=== PATIENT | female | born 1940 | race Caucasian/White ===

== ENCOUNTER → 2017-08-20 10:31 | Outpatient (CLI) | payer MEDICARE, OTHER, SELFPAY ==
[2017-08-22 22:15] LABS: Albumin 3.8 g/dL (3.8-4.8); Alpha 1 Globulin 0.3 g/dL (0.2-0.3); Alpha 2 Globulin 0.9 g/dL (0.5-0.9); Beta 1 Globulin 0.5 g/dL (0.4-0.6); Gamma Globulin 0.8 g/dL (0.8-1.7); Protein, Total 6.6 g/dL (6.1-8.1)
[2017-08-23 15:28] LABS: Albumin 100 %; Protein/ Creatinine Ratio 234 mg/g creat (21-161); Total Urine Protein 4 mg/dL (5-24)
== END ==
PROVIDERS: Family Provider Physician Assistant; PCP Physician Assistant; Visit Provider Orthopaedic Surgery
DX: M89.8X5 Other specified disorders of bone, thigh (principal)
CPT/HCPCS: 36415; 84155; 84156; 84165; 84166

== ENCOUNTER 2017-10-23 11:37 | Emergency (ER) | payer MEDICARE, OTHER, SELFPAY ==
[2017-10-23 11:40] VITALS: BP 158/73; PULSE 79; RESP 18; TEMP 36.6; O2SAT 99; BMI 37.8
--- NOTE | 2017-10-23 12:34 | ED_ITS ---
HPI - Eye Problem <Kathryn Schulz, BEAN PICKER MACHINE OPERATOR-BC - Last Filed: 10/23/17 14:17> General Chief complaint: Eye Problems Stated complaint: bleeding from left eye this morning Time Seen by Provider: 10/23/17 12:04 Source: patient Mode of arrival: ambulatory Limitations: no limitations History of Present Illness HPI Narrative: Patient was in shower this morning and noticed blood from her left eye. She states she is no longer bleeding from her left eye. She states that her eye all of a sudden felt wet, but she was in the shower. She denies any fevers, nausea, vomiting, diarrhea, headache at this time. She does complain of some postnasal drip. She denies sinus pressure sinus headaches. She was started on a drop for dry eyes last week, but she is not sure the name. She used it last night at 10:00 p.m. She saw her eye doctor last week for blurry vision. She states that the blurry vision is not worsened or changed. She denies changes in her vision, double vision, halos around lights. No foreign body sensation. Related Data Home Medications Medication Instructions Recorded Confirmed aspirin 81 mg PO QPM #0 09/10/10 10/23/17 Probiotic 1 cap PO QDAY #0 11/24/12 10/23/17 [CPAP] 1 ea MISCELLANEOUS HS #0 06/25/16 10/23/17 coenzyme Q10 [Co Q-10] 200 mg PO BID #0 06/25/16 10/23/17 Glucose: Test Strips 1 str MISCELLANEOUS PRN 10/23/17 10/23/17 atorvastatin [Lipitor] 20 mg PO BEDTIME 10/23/17 10/23/17 ibuprofen 800 mg PO TID PRN 10/23/17 10/23/17 metformin 1,000 mg PO QPM 10/23/17 10/23/17 metformin [Glucophage] 500 mg PO QAM 10/23/17 10/23/17 metronidazole [Metrogel] 1 applic TOPICAL DIRECTED 10/23/17 10/23/17 scopolamine base 1 patch TRANSDERMAL Q72H PRN 10/23/17 10/23/17 Previous Rx's Medication Instructions Recorded allopurinol 100 mg PO QDAY #90 tab 12/11/16 levothyroxine [Synthroid] 125 mcg PO QDAY #90 tab 06/25/17 telmisartan 40 mg PO QDAY #90 tab 06/25/17 chlorthalidone 25 mg tablet 25 mg PO QDAY #90 tab 08/20/17 Allergies Allergy/AdvReac Type Severity Reaction Status Date / Time Penicillins [PENICILLINS] Allergy Severe HIVES Unverified 07/02/17 12:08 cephradine [CEPHRADINE] AdvReac Severe RASH Verified 10/23/17 11:43 codeine [CODEINE] AdvReac Severe HIVES Verified 10/23/17 11:43 Pertussis Vaccines AdvReac Severe IT GAVE Verified 10/23/17 11:43 [PERTUSSIS VACCINES] ME THE WHOOPING COUGH WHEN I WAS AN INFANT. lisinopril [LISINOPRIL] AdvReac Mild COUGH Verified 10/23/17 11:43 Review of Systems <BRI Burnett- - Last Filed: 10/23/17 14:17> Review of Systems GENERAL: Denies chills, fatigue, malaise, fever, sweats. HEENT: See HPI RESPIRATORY: Denies dyspnea, cough, wheezing, hemoptysis, sputum. CARDIOVASCULAR: Denies chest pain, palpitations, orthopnea, edema, GASTROINTESTINAL: Denies nausea, vomiting, abdominal pain, diarrhea, constipation, melena. : Denies dysuria, frequency, incontinence, hematuria, urinary retention. MUSCULOSKELETAL: denies weakness, joint pain, or bony pain SKIN: Denies rash, skin lesions, or other NEUROLOGIC: Denies weakness, headache, numbness, change in speech, confusion, seizures, incoordination. PSYCHIATRIC: No concerning psychosocial issues. 12 point review of systems is negative except for those stated above Exam <BRI Burnett- - Last Filed: 10/23/17 14:17> Narrative Exam Narrative: GENERAL: Obese elderly female lying on stretcher. HEAD: Atraumatic. Normocephalic. No temporal or scalp tenderness. No pain to sinus palpation. EYES: Pupils equal round and reactive. Extraocular motions intact. No scleral icterus. No injection or drainage. No pain on EOMs. No noted bleeding bilateral eyes. ENT: Nose without bleeding, purulent drainage or septal hematoma. Throat without erythema, tonsillar hypertrophy or exudate. Uvula midline. Airway patent. NECK: Trachea midline. No JVD or lymphadenopathy. Supple, nontender, no meningeal signs. CARDIOVASCULAR: Regular rate and rhythm without murmurs, gallops, or rubs. RESPIRATORY: Clear to auscultation. Breath sounds equal bilaterally. No wheezes , rales, or rhonchi. GASTROINTESTINAL: Abdomen soft, non-tender, nondistended. No hepato-splenomegaly , or palpable masses. No guarding. EXTREMITIES: No clubbing, cyanosis, or edema. No joint tenderness, effusion, or edema noted. BACK: Nontender without deformity or crepitance. No flank tenderness. NEURO: AOx3. SKIN: No rash or erythema. No ecchymosis, laceration or abrasion noted around left eye or right eye. Initial Vital Signs Initial Vital Signs: Vital Signs Temperature 97.9 F 10/23/17 11:40 Pulse Rate 79 10/23/17 11:40 Respiratory Rate 18 10/23/17 11:40 Blood Pressure 158/73 H 10/23/17 11:40 Pulse Oximetry 99 10/23/17 11:40 <Alejandro Gold MD - Last Filed: 10/27/17 08:16> Initial Vital Signs Initial Vital Signs: Vital Signs Temperature 97.9 F 10/23/17 11:40 Pulse Rate 79 10/23/17 11:40 Respiratory Rate 18 10/23/17 11:40 Blood Pressure 158/73 H 10/23/17 11:40 Pulse Oximetry 99 10/23/17 11:40 Course <BRI Burnett-BC - Last Filed: 10/23/17 14:17> Orders Ordered: ED Orders 10/23/17 13:25 Complete Blood Count AUTO DIFF Stat Comprehensive Metabolic Panel Stat Prothrombin Time INR Stat Reevaluation(s) Reevaluation #1: Discussed getting labs, possibility of nasal lacrimal duct dryness from CPAP. Patient has no questions or concerns at this time. No blood from left eye. Time: 12:55 Reevaluation #2: Discussed waiting for lab results. No bleeding from left I observed. Patient was given ice water myself. Time: 13:20 Reevaluation #3: Discussed normal lab results. Patient still has no blood from left eye. Patient has no questions or concerns and states she is ready to be discharged. Discussed at length return precautions for eye pain, visual difficulty or any acute changes. Discussed being re-evaluated for a lobes around lights, eye pain or any visual difficulties. Time: 14:00 Vital Signs - 8 hr 10/23/17 11:40 10/23/17 13:29 Temperature 97.9 F Pulse Rate 79 67 Respiratory Rate 18 14 Blood Pressure 158/73 H Blood Pressure [Left Arm] 137/67 H Pulse Oximetry 99 100 <Alejandro Gold MD - Last Filed: 10/27/17 08:16> Orders Ordered: ED Orders 10/23/17 13:25 Complete Blood Count AUTO DIFF Stat Comprehensive Metabolic Panel Stat Prothrombin Time INR Stat Vital Signs - 8 hr 10/23/17 11:40 10/23/17 13:29 Temperature 97.9 F Pulse Rate 79 67 Respiratory Rate 18 14 Blood Pressure 158/73 H Blood Pressure [Left Arm] 137/67 H Pulse Oximetry 99 100 MDM - Eye Problem <LITO Burnett - Last Filed: 10/23/17 14:17> Lab Data Result diagrams: 10/23/17 13:25 10/23/17 13:25 Lab Results 10/23/17 10/23/17 10/23/17 Range/Units 13:25 13:25 13:25 WBC 8.0 (4.5-11.0) X10^3/uL RBC 4.61 (4.0-5.2) X10^6/uL Hgb 14.2 (12.0-16.0) g/dL Hct 41.6 (36-46) % MCV 90.2 (80-100) fL MCH 30.9 (26-34) PG MCHC 34.2 (30-36) % RDW 13.1 (11.6-14.8) % Plt Count 228 (150-400) X10^3/uL Neut % (Auto) 60.6 (50-75) % Lymph % (Auto) 27.0 (25-40) % [place] % (Auto) 8.2 (3-14) % Eos % (Auto) 3.4 (2-4) % Baso % (Auto) 0.8 (0-2) % Neut # (Auto) 4900 (5436-1296) /uL PT 11.2 (10.1-12.7) SECONDS INR 1.0 (0.9-1.3) Sodium 139 (137-145) mmol/L Potassium 3.5 (3.4-5.1) mmol/L Chloride 102 (98-107) mmol/L Carbon Dioxide 31 (22-32) mmol/L BUN 12 (7-17) mg/dL Creatinine 0.60 (0.52-1.04) mg/dL Estimated GFR > 60.0 (>60) mL/min BUN/Creatinine Ratio 20.0 (6-22) Glucose 98 (80-110) mg/dL Calcium 9.9 (8.4-10.2) mg/dL Total Bilirubin 0.5 (0.2-1.3) mg/dL AST 23 (14-36) IU/L ALT 32 (9-52) IU/L Alkaline Phosphatase 66 (38-126) U/L Total Protein 6.4 (6.3-8.2) g/dL Albumin 4.0 (3.5-5.0) g/dL Globulin 2.4 (1.7-4.1) g/dL Albumin/Globulin Ratio 1.7 (1.0-2.8) MDM Narrative Medical decision making narrative: Patient presented with chief complaint of blood coming from left eye this morning at approximately 9:30 a.m.. She did not have any blood observed from her left eye throughout her emergency department stay. I did basic lab work in order to rule out underlying etiology. She does not have any complaints that would indicate sinus infection and she has stable vital signs. She had a normal eye exam and did not complain of visual deficit. Discussed at length with patient return precautions and I pain, reoccurrence, or sudden visual deficit. She is seeing an eye doctor for blurry vision and dry eyes, but does not state any changes with those complaints. Patient has now questions or concerns upon discharge appears grateful for her visit today. <Alejandro Gold MD - Last Filed: 10/27/17 08:16> Lab Data Lab Results 10/23/17 10/23/17 10/23/17 Range/Units 13:25 13:25 13:25 WBC 8.0 (4.5-11.0) X10^3/uL RBC 4.61 (4.0-5.2) X10^6/uL Hgb 14.2 (12.0-16.0) g/dL Hct 41.6 (36-46) % MCV 90.2 (80-100) fL MCH 30.9 (26-34) PG MCHC 34.2 (30-36) % RDW 13.1 (11.6-14.8) % Plt Count 228 (150-400) X10^3/uL Neut % (Auto) 60.6 (50-75) % Lymph % (Auto) 27.0 (25-40) % [place] % (Auto) 8.2 (3-14) % Eos % (Auto) 3.4 (2-4) % Baso % (Auto) 0.8 (0-2) % Neut # (Auto) 4900 (5982-8936) /uL PT 11.2 (10.1-12.7) SECONDS INR 1.0 (0.9-1.3) Sodium 139 (137-145) mmol/L Potassium 3.5 (3.4-5.1) mmol/L Chloride 102 (98-107) mmol/L Carbon Dioxide 31 (22-32) mmol/L BUN 12 (7-17) mg/dL Creatinine 0.60 (0.52-1.04) mg/dL Estimated GFR > 60.0 (>60) mL/min BUN/Creatinine Ratio 20.0 (6-22) Glucose 98 (80-110) mg/dL Calcium 9.9 (8.4-10.2) mg/dL Total Bilirubin 0.5 (0.2-1.3) mg/dL AST 23 (14-36) IU/L ALT 32 (9-52) IU/L Alkaline Phosphatase 66 (38-126) U/L Total Protein 6.4 (6.3-8.2) g/dL Albumin 4.0 (3.5-5.0) g/dL Globulin 2.4 (1.7-4.1) g/dL Albumin/Globulin Ratio 1.7 (1.0-2.8) Discharge Plan Departure Patient Disposition: Home, Self-Care Clinical Impression: Left eye complaint Discharge Date/Time: 10/23/17 14:25 Interventions: ED Discharge Assessment Last Done: 10/23/17 14:24 Activity Restrictions/Additional Instructions: You presented today for chief complaint of bleeding from your left eye. This bleeding was not observed in the emergency department. Your lab work came back normal. Your exam does not show any abnormality. I would like you to use lubricating nasal spray as needed, especially since you uses CPAP at night. I would like you to follow up with your eye doctor since you do not like using the lubricating drops he gave you. You can try using a non additive lubricating drops [id number]. Please come back to the emergency department if you notice any sudden visual deficit, eye pain, or any other acute concerns. Prescriptions: No Action aspirin 81 mg Tablet,Delayed Release (Dr/Ec) 81 mg PO QPM Qty: 0 RF: 0 Probiotic 1 cap PO QDAY Qty: 0 RF: 0 coenzyme Q10 [Co Q-10] 200 mg Capsule 200 mg PO BID Qty: 0 RF: 0 [CPAP] 1 ea miscellaneous HS Qty: 0 RF: 0 allopurinol 100 MG tablet 100 mg PO QDAY Qty: 90 RF: 3 telmisartan 40 MG tablet 40 mg PO QDAY Qty: 90 RF: 3 levothyroxine [Synthroid] 125 MCG tablet 125 mcg PO QDAY Qty: 90 RF: 4 chlorthalidone 25 mg tablet 25 mg PO QDAY Qty: 90 RF: 3 metronidazole [Metrogel] 1 % gel 1 applic Topical DIRECTED RF: 0 Glucose: Test Strips 1 str miscellaneous PRN RF: 0 metformin 500 mg tablet 1,000 mg PO QPM RF: 0 scopolamine base 1 mg over 3 days Patch 3 Day 1 patch TRANSDERMAL Q72H PRN (Reason: Dizziness) RF: 0 metformin [Glucophage] 500 MG tablet 500 mg PO QAM RF: 0 atorvastatin [Lipitor] 20 MG tablet 20 mg PO BEDTIME RF: 0 ibuprofen 800 MG tablet 800 mg PO TID PRN (Reason: knee pain) RF: 0 Referrals: Natalie Marquis PA-C [Primary Care Provider] - <Alejandro Gold MD - Last Filed: 10/27/17 08:16> Sign Out Provider Sign Out Attestation: The PA/IP TECHNOLOGY TRANSACTIONS ATTORNEY functioned independently for the care of this pt, I was available, but not asked to participate in care. I am unable to determine appropriateness of management without personally examining the pt.
--- NOTE | 2017-10-23 13:27 | PC.NURSE ---
PT had sudden blood from left eye. Blurry vision pre dates this and has been under care of eye doctor.
[2017-10-23 13:29] VITALS: BP 137/67; PULSE 67; RESP 14; O2SAT 100
[2017-10-23 13:32] LABS: Add Manual Diff / Slide Review NO; Basophils Percent Auto 0.8 % (0-2); Eosinophils Percent Auto 3.4 % (2-4); Hematocrit 41.6 % (36-46); Hemoglobin 14.2 g/dL (12.0-16.0); Mean Corpuscular HGB Conc 34.2 % (30-36); Mean Corpuscular Hemoglobin 30.9 PG (26-34); Mean Corpuscular Volume 90.2 fL (80-100); Monocytes Percent Auto 8.2 % (3-14); Neutrophils Absolute Auto 4900 /uL (3000-5900); Neutrophils Percent Auto 60.6 % (50-75); Platelet Count 228 X10^3/uL (150-400); Red Blood Cell Count 4.61 X10^6/uL (4.0-5.2); Red Cell Distribution Width 13.1 % (11.6-14.8)
[2017-10-23 13:43] LABS: Prothrombin Time 11.2 SECONDS (10.1-12.7)
[2017-10-23 13:48] LABS: Alanine Aminotransferase 32 IU/L (9-52); Albumin Globulin Ratio 1.7 (1.0-2.8); Alkaline Phosphatase 66 U/L (38-126); Aspartate Aminotransferase 23 IU/L (14-36); Bilirubin Total 0.5 mg/dL (0.2-1.3); Blood Urea Nitrogen 12 mg/dL (7-17); Calcium 9.9 mg/dL (8.4-10.2); Carbon Dioxide 31 mmol/L (22-32); Chloride 102 mmol/L (98-107); Estimated Glomerular Filt Rate > 60.0 mL/min (>60); Globulin 2.4 g/dL (1.7-4.1); Glucose 98 mg/dL (80-110); HEMOLYSIS < 15 (0-50); Potassium 3.5 mmol/L (3.4-5.1); Sodium 139 mmol/L (137-145); Total Protein 6.4 g/dL (6.3-8.2)
[2017-10-23 14:24] VITALS: BP 128/76; PULSE 61; O2SAT 100
== END 2017-10-23 14:25 | disposition home or self-care (01) ==
PROVIDERS: Emergency Provider Nurse Practitioner Family; Family Provider Physician Assistant; PCP Physician Assistant
DX: H57.12 Ocular pain, left eye (principal)
CPT/HCPCS: 36415; 80053; 85025; 85610; 99283

== ENCOUNTER → 2017-12-15 14:02 | Outpatient (CLI) | payer MEDICARE, OTHER, SELFPAY ==
[2017-12-15 14:38] LABS: Hemoglobin A1C% w Est Avg Glu 6.3 % (4.0-6.0)
[2017-12-15 15:53] LABS: Thyroid Stimulating Hormone 2.39 uIU/mL (0.47-4.68)
[2017-12-15 17:56] LABS: Creatinine Urine Random 32.6 mg/dL
[2017-12-15 18:01] LABS: Microalbumi Creatinin Ratio Ur 27.6 ug/mg CR (<30); Microalbumin Urine Random 0.9 mg/dL (0-1.6)
== END ==
PROVIDERS: PCP Physician Assistant; Visit Provider Physician Assistant
DX: E03.9 Hypothyroidism, unspecified (principal); E11.9 Type 2 diabetes mellitus without complications; E78.5 Hyperlipidemia, unspecified; I10 Essential (primary) hypertension
CPT/HCPCS: 36415; 82043; 82570; 83036; 84443

== ENCOUNTER → 2018-01-09 14:00 | Outpatient (CLI) | payer MEDICARE, OTHER, SELFPAY ==
--- NOTE | 2018-01-09 14:02 | DI.MG.S_ITS ---
BILATERAL DIGITAL SCREENING MAMMOGRAM 3D/2D WITH CAD: 01/09/2018 CLINICAL: Routine screening. Comparison is made to exams dated: 12/24/2016 mammogram, 12/18/2015 mammogram, and 12/16/2014 mammogram - [facility]. The tissue of both breasts is predominantly fatty. Current study was also evaluated with a Computer Aided Detection (CAD) system. No significant masses, calcifications, or other findings are seen in either breast. There has been no significant interval change. IMPRESSION: NEGATIVE There is no mammographic evidence of malignancy. A 1 year screening mammogram is recommended. This exam was interpreted at Station ID: [id number]. NOTE: For mammograms, a report in lay terms will be sent to the patient. Approximately 15% of breast malignancies will not be visualized mammographically. In the management of a palpable breast mass, a negative mammogram must not discourage biopsy of a clinically suspicious lesion. Electronically Signed By: Angeline momin/wyatt:01/09/2018 16:30:58 letter sent: Normal Exam ACR BI-RADS Category 1: Negative 3341F
== END ==
PROVIDERS: PCP Physician Assistant; Visit Provider Physician Assistant
DX: Z12.31 Encounter for screening mammogram for malignant neoplasm of breast (principal)
CPT/HCPCS: 77063; 77067

== ENCOUNTER → 2018-01-30 12:30 | Outpatient (CLI) | payer MEDICARE, OTHER, SELFPAY | PROVIDERS: PCP Physician Assistant; Visit Provider Surgery | DX: R94.31 Abnormal electrocardiogram [ECG] [EKG] (principal) | CPT/HCPCS: 93005 ==

== ENCOUNTER 2018-02-10 07:50 | Day surgery (SDC) | payer MEDICARE, OTHER, SELFPAY ==
[2018-02-05 10:16] VITALS: BMI 37.4
[2018-02-10] VITALS (8 sets, daily range): BP systolic 91–140; BP diastolic 55–81; PULSE 72–96; RESP 10–20; TEMP 36.3–37.4; O2SAT 93–99; BMI 36.2
[2018-02-10] MEDS: LACTATED RINGERS 1,000 ML 42 ML IV (08:27)
[2018-02-10] MEDS: SCOPOLAMINE 1 PATCH TOP (08:31)
--- NOTE | 2018-02-10 09:13 | PM.PREOP ---
Pre-operative Note Interval Note Pre-op Check: Yes History & Physical Reviewed by Physician and Yes Exam Performed Changes: No H&P completed within 30 days and has changed as indicated here:: Patient seen and examined in the preoperative area. Patient marked for surgery accordingly. History physical examination as documented on the chart January 19, 2018 has not changed. We will proceed with incisional hernia repair as above.
[2018-02-10] MEDS: CLINDAMYCIN 900 MG/50 ML PIGGYBACK 50 MG IV (09:20)
--- NOTE | 2018-02-10 09:45 | SUR.OPER ---
Supine on padded OR bed, head on pillow, arms secured on padded arm boards at <90 degrees abduction, legs uncrossed, safety belt at thigh, tape over blanket over lower legs.
[2018-02-10] MEDS: LIDOCAINE 1% W/EPI INJ 20 ML INJ (09:53)
[2018-02-10] MEDS: BUPIVACAINE 0.5% (PF) VIAL 30 ML INJ (09:54)
--- NOTE | 2018-02-10 10:31 | SUR.PHASEI ---
arrived with oral airway, o2 added.
--- NOTE | 2018-02-10 10:35 | PM.OP.1 ---
Operative Date/Time/Diagnoses Date of procedure: 02/10/18 Time of procedure: 10:35 Pre-op diagnosis: Symptomatic incisional hernia at umbilicus Post-op diagnosis: same Procedure & Clinicians Procedure: Open repair of reducible incisional hernia with mesh Same procedure as scheduled: Yes Indications: 77-year-old female status post laparoscopic surgery in the past who presented with intermittent painful mass at the umbilicus over the area of her past scar. Examination and evaluation were consistent with symptomatic reducible incisional hernia. Open repair with mesh was recommended. Surgeon: Chase Mckenzie Click Yes if Unassisted: Yes Anesthesia Type: General Operative Notes Findings: 1. Reducible hernia sac within fascial defect measuring 4 x 2 cm in greatest dimension 2. Hernia sac containing omentum and preperitoneal fat only 3. No evidence of any satellite hernias by palpation and visual inspection 4. Relatively poor tissue integrity likely secondary to diabetes and morbid obesity. Closure Type: primary Specimen(s): none sent Implants & Drains: 2.5 in x 2.5 in circular CQur mesh Applied: other (Circular mesh to hernia defect as above) Estimated Blood Loss (mL): 5 Blood products transfused: none Procedure in detail: After obtaining informed consent the patient was brought to the operating room placed supine on the table. After satisfactory induction of anesthesia the abdomen was prepped and draped in usual sterile fashion. SCOAP time out was performed per standard protocol. A 1 :1 mixture 1% lidocaine with 1:100,000 epinephrine and 0.5% plain Marcaine was injected in the skin and subcutaneous tissue over the hernia defect for postoperative analgesia. Vertical midline incision was created with 15 scalpel blade over the palpable defect and Bovie was used to achieve hemostasis. Self-retaining retractor was used to provide exposure. Bovie was used to obtain hemostasis and carried the dissection through the subcutaneous tissue to the rectus fascia. Hernia sac was immediately encountered and sharply dissected away from surrounding connective tissue and adhesions with Metzenbaum scissors. Hernia sac was then opened with the scissors sharply under direct visualization and excised. Sac was discarded. Hernia contents were reduced back into the abdominal cavity as above. Defect was measured and mesh was brought onto the operative field and soaked in saline. Mesh was then secured in a circumferential interrupted fashion with 0 Tycron sutures. Mesh was noted to completely cover the defect nicely with excellent overlap. However, tissue integrity was found to be somewhat suboptimal as above. Nevertheless repair seem solid in the area was irrigated with copious amounts of sterile saline solution. Hemostasis was verified. Subcutaneous tissue was reapproximated with interrupted 3 0 Vicryl suture. Skin was closed in running subcuticular fashion with 4 0 Monocryl. Dermal adhesive was applied to the skin. Anesthesia was reversed and patient extubated in the operating room. She was taken recovery in stable condition. Complications: none Condition: stable Disposition: PACU Plan for aftercare: 1. Discharge home 2. Follow up in surgery Clinic in 2 weeks
--- NOTE | 2018-02-10 10:41 | SUR.PHASEI ---
AIRWAY OUT, AWAKE, FOLLOWING COMMANDS. WEANING OF O2
[2018-02-10] MEDS: OXYCODONE IR 5 MG TABLET PO (10:56)
--- NOTE | 2018-02-10 11:11 | SUR.PHASEII ---
ABDOMEN SOFT WITH INTACT INCISION, SOME BRUISING STARTING. TO BEDSIDE, D/C INSTRUCTIONS DISCUSSED BOTH VOICED AN UNDERSTANDING. ICE PACK ON ABDOMEN, MEDICATED WITH OXYCODONE AFTER APPLESAUCE TOLERATED. REPOT TO ALL.
--- NOTE | 2018-02-10 11:18 | SUR.PHASEII ---
Pt sitting up in bed, tolerating full liquids. IS provided and return demonstration successful. Spouse at bedside. Call light within reach.
== END 2018-02-10 12:00 | disposition home or self-care (01) ==
PROVIDERS: PCP Physician Assistant; Visit Provider Surgery
PROC: (CPT 49560; principal; 2018-02-10 09:15)
DX: K43.2 Incisional hernia without obstruction or gangrene (principal); E11.9 Type 2 diabetes mellitus without complications; E66.9 Obesity, unspecified; G47.33 Obstructive sleep apnea (adult) (pediatric); I10 Essential (primary) hypertension; E78.5 Hyperlipidemia, unspecified; E03.9 Hypothyroidism, unspecified; Z68.37 Body mass index [BMI] 37.0-37.9, adult; Z79.84 Long term (current) use of oral hypoglycemic drugs
CPT/HCPCS: 49560; 49568; C1781; J2250; J2405; J2704; J3010

== ENCOUNTER → 2018-05-13 11:53 | Outpatient (CLI) | payer MEDICARE, OTHER, SELFPAY ==
--- NOTE | 2018-05-13 | DI.US.S_ITS ---
PROCEDURE: US ARTERIAL DUPLEX LE BI INDICATIONS: DIABETES MELLITUS/ATHERSCLEROSIS TECHNIQUE: Color and pulse Doppler interrogation was performed of both lower extremity arterial systems, with image documentation. COMPARISON: None. FINDINGS: Right lower extremity: Common femoral artery: 102 cm/sec, with triphasic flow. Deep femoral artery: 84 cm/sec, with triphasic flow. Proximal superficial femoral artery: 96 cm/sec, with triphasic flow. Mid superficial femoral artery: 88 cm/sec, with biphasic flow. Distal superficial femoral artery: 65 cm/sec, with triphasic flow. Popliteal artery: 59 cm/sec, with biphasic flow. Posterior tibial artery: 85 cm/sec, with biphasic flow. Anterior tibial artery/dorsalis pedis: 55 cm/sec, with biphasic flow. Veloz-scale imaging description: No significant atherosclerotic or soft plaquing Left lower extremity: Common femoral artery: 117 cm/sec, with triphasic flow. Deep femoral artery: 61 cm/sec, with biphasic flow. Proximal superficial femoral artery: 107 cm/sec, with biphasic flow. Mid superficial femoral artery: 88 cm/sec, with biphasic flow. Distal superficial femoral artery: 69 cm/sec, with triphasic flow. Popliteal artery: 56 cm/sec, with biphasic flow. Posterior tibial artery: 68 cm/sec, with biphasic flow. Anterior tibial artery/dorsalis pedis: 71 cm/sec, with triphasic flow. Veloz-scale imaging description: No appreciable calcific or soft plaque. IMPRESSION: No appreciable calcific or soft plaque. No area of lower extremity arterial stenosis. A ankle-brachial index on the right is 1.2 and on the left is 1.3. Dictated by: Lucas Saenz M.D. on 05/13/2018 at 13:32 Approved by: Luacs Saenz M.D. on 05/13/2018 at 13:35
== END ==
PROVIDERS: PCP Physician Assistant; Visit Provider Podiatrist
DX: E11.9 Type 2 diabetes mellitus without complications (principal); I70.222 Atherosclerosis of native arteries of extremities with rest pain, left leg; I70.221 Atherosclerosis of native arteries of extremities with rest pain, right leg
CPT/HCPCS: 93925

== ENCOUNTER → 2018-06-23 09:35 | Outpatient (CLI) | payer MEDICARE, OTHER, SELFPAY ==
[2018-06-23 12:25] LABS: Hemoglobin A1C% w Est Avg Glu 6.3 % (4.0-6.0)
[2018-06-23 12:34] LABS: Alanine Aminotransferase 38 IU/L (9-52); Albumin 4.2 g/dL (3.5-5.0); Albumin Globulin Ratio 1.6 (1.0-2.8); Alkaline Phosphatase 61 U/L (38-126); Aspartate Aminotransferase 26 IU/L (14-36); BUN Creatinine Ratio 21.7 (6-22); Bilirubin Total 0.5 mg/dL (0.2-1.3); Blood Urea Nitrogen 13 mg/dL (7-17); Calcium 9.7 mg/dL (8.4-10.2); Carbon Dioxide 28 mmol/L (22-32); Chloride 98 mmol/L (98-107); Cholesterol 116 mg/dL (140-199); Estimated Glomerular Filt Rate > 60.0 mL/min (>60); Globulin 2.6 g/dL (1.7-4.1); Glucose 120 mg/dL (80-110); HDL Cholesterol 38 mg/dL (40-60); HEMOLYSIS < 15 (0-50); LDL Cholesterol Calculated 45 mg/dL (<100); Potassium 3.5 mmol/L (3.4-5.1); Sodium 138 mmol/L (137-145); Total Protein 6.8 g/dL (6.3-8.2); Triglycerides 165 mg/dL (35-150)
[2018-06-23 13:18] LABS: Creatinine Urine Random 28.4 mg/dL
[2018-06-23 13:26] LABS: Microalbumi Creatinin Ratio Ur 21.1 ug/mg CR (<30); Microalbumin Urine Random < 0.6 mg/dL (0-1.6)
[2018-06-23 13:43] LABS: Thyroid Stimulating Hormone 2.45 uIU/mL (0.47-4.68)
== END ==
PROVIDERS: PCP Physician Assistant; Visit Provider Physician Assistant
DX: E03.9 Hypothyroidism, unspecified (principal); E11.9 Type 2 diabetes mellitus without complications; E78.5 Hyperlipidemia, unspecified; I10 Essential (primary) hypertension
CPT/HCPCS: 36415; 80053; 80061; 82043; 82570; 83036; 84443

== ENCOUNTER → 2018-10-27 09:23 | Outpatient (CLI) | payer MEDICARE, OTHER, SELFPAY ==
[2018-10-27 10:17] LABS: Hemoglobin A1C% w Est Avg Glu 6.3 % (4.0-6.0)
[2018-10-27 10:41] LABS: Alanine Aminotransferase 28 IU/L (9-52); Albumin 3.9 g/dL (3.5-5.0); Albumin Globulin Ratio 1.5 (1.0-2.8); Alkaline Phosphatase 58 U/L (38-126); Aspartate Aminotransferase 23 IU/L (14-36); BUN Creatinine Ratio 16.7 (6-22); Bilirubin Total 0.7 mg/dL (0.2-1.3); Blood Urea Nitrogen 10 mg/dL (7-17); Carbon Dioxide 28 mmol/L (22-32); Chloride 98 mmol/L (98-107); Cholesterol 119 mg/dL (140-199); Estimated Glomerular Filt Rate > 60.0 mL/min (>60); Globulin 2.6 g/dL (1.7-4.1); Glucose 125 mg/dL (80-110); HDL Cholesterol 40 mg/dL (40-60); HEMOLYSIS < 15 (0-50); LDL Cholesterol Calculated 39 mg/dL (<100); Potassium 3.6 mmol/L (3.4-5.1); Sodium 137 mmol/L (137-145); Total Protein 6.5 g/dL (6.3-8.2); Triglycerides 198 mg/dL (35-150); Uric Acid 5.7 mg/dL (2.5-6.2)
[2018-10-27 10:46] LABS: Microalbumi Creatinin Ratio Ur 15.7 ug/mg CR (<30); Microalbumin Urine Random < 0.6 mg/dL (0-1.6)
[2018-10-27 11:15] LABS: Thyroid Stimulating Hormone 3.15 uIU/mL (0.47-4.68)
== END ==
PROVIDERS: PCP Physician Assistant; Visit Provider Physician Assistant
DX: E03.9 Hypothyroidism, unspecified (principal); E78.5 Hyperlipidemia, unspecified; E11.9 Type 2 diabetes mellitus without complications; I10 Essential (primary) hypertension; M10.9 Gout, unspecified
CPT/HCPCS: 36415; 80053; 80061; 82043; 82570; 83036; 84443; 84550

== ENCOUNTER → 2018-11-06 10:09 | Outpatient (CLI) | payer MEDICARE, OTHER, SELFPAY | PROVIDERS: PCP Physician Assistant; Visit Provider Physician Assistant | DX: Z78.0 Asymptomatic menopausal state (principal); E07.9 Disorder of thyroid, unspecified; E28.39 Other primary ovarian failure; E11.9 Type 2 diabetes mellitus without complications | CPT/HCPCS: 77080 ==

== ENCOUNTER → 2019-01-15 10:58 | Outpatient (CLI) | payer MEDICARE, OTHER, SELFPAY ==
--- NOTE | 2019-01-15 10:59 | DI.MG.S_ITS ---
BILATERAL DIGITAL SCREENING MAMMOGRAM 3D/2D WITH CAD: 01/15/2019 CLINICAL: Routine screening. Comparison is made to exams dated: 01/09/2018 mammogram, 12/24/2016 mammogram, and 12/18/2015 mammogram - [facility]. There are scattered fibroglandular elements in both breasts. Current study was also evaluated with a Computer Aided Detection (CAD) system. No significant masses, calcifications, or other findings are seen in either breast. There has been no significant interval change. IMPRESSION: NEGATIVE There is no mammographic evidence of malignancy. A 1 year screening mammogram is recommended. This exam was interpreted at Station ID: [id number]. NOTE: For mammograms, a report in lay terms will be sent to the patient. Approximately 15% of breast malignancies will not be visualized mammographically. In the management of a palpable breast mass, a negative mammogram must not discourage biopsy of a clinically suspicious lesion. Electronically Signed By: Waqas galvan/wyatt:01/15/2019 22:16:52 letter sent: Normal Exam ACR BI-RADS Category 1: Negative 3341F
== END ==
PROVIDERS: PCP Physician Assistant; Visit Provider Physician Assistant
DX: Z12.31 Encounter for screening mammogram for malignant neoplasm of breast (principal)
CPT/HCPCS: 77063; 77067

== ENCOUNTER → 2019-02-10 14:09 | Outpatient (CLI) | payer MEDICARE, OTHER, SELFPAY ==
--- NOTE | 2019-02-10 | DI.MRI.S_ITS ---
PROCEDURE: MR KNEE RT WO CON INDICATIONS: Other specified disorders of bone, thigh TECHNIQUE: [facility] [employer] protocol was performed. Noncontrast sagittal PD fast spin echo and T2 fast spin echo with fat saturation, sagittal 3-D FLASH with fat saturation; coronal T1 spin echo and PD fast spin echo with fat saturation, and axial PD fast spin echo with fat saturation through the knee. COMPARISON: [facility], CR, KNEE 3V RIGHT, 06/11/2017, 12:49. [facility], CR, XR KNEE ARTHRITIC SERIES RT, 07/10/2018, 14:14. [facility], CR, FEMUR TWO OR MORE VIEWS RIGHT, 06/23/2017, 10:18. FINDINGS: Image quality: Excellent. Menisci: The meniscal tear involving the posterior horn with abnormal signal extending to the undersurface, and marked truncation of the free margin. There is partial extrusion Lateral meniscus intact. Cruciate ligaments: Anterior cruciate ligament not well seen and demonstrates marked T2 intrasubstance hyperintensity and possible cystic change, which may extend into the lateral femoral condyle. Additional intraosseous cyst seen at the tibial eminence Posterior cruciate ligament appears intact. Medial structures: The medial collateral ligament appears intact. Semimembranosus tendon appears intact. Visualized portions of the pes anserinus tendons appear normal. No abnormal bursal fluid. Lateral structures: The lateral collateral ligament demonstrates thickening and intrasubstance signal change in keeping with low grade sprain, statistically chronic, although technically age indeterminate. Biceps femoris tendon appears intact. Popliteus tendon grossly unremarkable. Iliotibial band appears intact. Anterior structures: Quadriceps tendon intact. Medial patellofemoral ligament appears grossly unremarkable. There is mild thickening and T2 hyperintense appearance of the patellar attachment of the lateral patellofemoral ligament although technically age indeterminate There is mild patellar tendinopathy. Diffuse prepatellar and superficial infrapatellar subcutaneous edema/fluid. Bones and cartilage: No focal marrow contusion or discrete low signal fracture line. Within the medial compartment, diffuse partial thickness femoral and tibial articular cartilage loss. Within the lateral compartment, tibial cartilage appears intact. Diffuse small partial-thickness loss of the femoral cartilage Within the patellofemoral compartment, mild diffuse surface fraying of the trochlear and patellar cartilage Joint space: No pathologic joint effusion. No Sellers's cyst. Possible 3 mm loose body seen in the intercondylar notch on image 93 series 9, however technically indeterminate but not radiographically identified IMPRESSION: Medial meniscal tear involving the posterior horn and body, with partial extrusion. Marked signal changes and thickening of the anterior cruciate ligament although the presence of adjacent intraosseous cysts in the lateral femoral condyle and tibial spine suggests this may represent mucoid degeneration. Differential includes partial ACL rupture/sprain. Age-indeterminate mild sprain of the patellar attachment of the lateral patellofemoral ligament Mild patellar tendinopathy Degenerative joint disease as above. Dictated by: Bentley Dutton M.D. on 02/11/2019 at 9:04 Approved by: Bentley Dutton M.D. on 02/11/2019 at 9:14
== END ==
PROVIDERS: PCP Physician Assistant; Visit Provider Orthopaedic Surgery
DX: M89.8X5 Other specified disorders of bone, thigh (principal); S83.241A Other tear of medial meniscus, current injury, right knee, initial encounter; M17.11 Unilateral primary osteoarthritis, right knee
CPT/HCPCS: 73721

== ENCOUNTER → 2019-03-15 14:22 | Outpatient (CLI) | payer MEDICARE, OTHER, SELFPAY ==
--- NOTE | 2019-03-15 | DI.MRI.S_ITS ---
PROCEDURE: MR LUMBAR SPINE WO CON INDICATIONS: Low back pain TECHNIQUE: Noncontrast sagittal T1 spin echo and T2 fast echo, sagittal STIR, axial T1 and T2 fast spin echo through the lumbar spine. In cases with scoliosis, additional coronal T2 fast spin echo may be performed. COMPARISON: None. FINDINGS: Image quality: Excellent. Alignment and Curvature: No plain films are available for comparison, for numbering purposes. Thus, for the purposes of this examination, 5 lumbar type vertebral bodies will be presumed, as denoted on the montage panel. This should be confirmed and correlated with plain films, prior to any lumbar spinal intervention. There is mild, grade 1 retrolisthesis of T12 on L1, L1 on L2, and L2 on L3. Mild grade 1 anterolisthesis of L3 on L4 and L4 on L5. Bone Marrow: Marrow is of normal overall signal. No acute vertebral body compression fractures. Mild reactive signal within the endplates adjacent to the T12-L1, L1-L2, L2-L3, and L3-L4 intervertebral discs. Spinal Cord: Conus medullaris terminates at the upper L1 level. Visualized cord demonstrates normal signal and size. Paraspinous Soft Tissues: No paravertebral masses. Incompletely visualized right renal cyst measuring at least 86 mm. L1-L2: Moderate disc desiccation. Mild disc height loss. Mild diffuse disc bulge. Mild facet and ligamentum flavum hypertrophy. Mild canal stenosis. Mild bilateral foraminal stenosis. L2-L3: Mild disc height loss and desiccation. Moderate diffuse disc bulge. Mild facet and ligament flavum hypertrophy. Moderate epidural lipomatosis. Severe canal stenosis. Mild bilateral foraminal stenosis. L3-L4: Mild disc height loss. Moderate disc desiccation. Mild diffuse disc bulge with superimposed broad-based left far lateral and posterior lateral protrusion. Moderate facet and ligamentum flavum hypertrophy. Mild epidural lipomatosis. Severe canal stenosis. Moderate subarticular foraminal stenosis bilaterally. L4-L5: Moderate disc height loss and desiccation. Mild diffuse disc bulge. Moderate to severe bilateral facet hypertrophy. Mild epidural lipomatosis. Severe canal stenosis. Mild right and moderate left subarticular foraminal stenosis. L5-S1: Moderate distal desiccation. Moderate bilateral facet hypertrophy. Mild epidural lipomatosis. Mild canal stenosis. No foraminal stenosis. IMPRESSION: 1. Multilevel degenerative disc and facet disease, as well as ligamentum flavum hypertrophy and epidural lipomatosis. 2. 5 lumbar type vertebral bodies were presumed for the current report. Plain films of the lumbar spine are recommended for confirmation, prior to any lumbar spinal intervention. 3. Multilevel canal stenoses, worst at L2-L3, L3-L4, and L4-L5, where there are severe canal stenoses present. 4. Multilevel foraminal stenoses, worst at L3-L4 bilaterally, and at L4-L5 on the left, where there are moderate foraminal stenoses present. Dictated by: Lary Bansal M.D. on 03/15/2019 at 15:52 Approved by: Lary Bansal M.D. on 03/15/2019 at 15:56
== END ==
PROVIDERS: PCP Physician Assistant; Visit Provider Orthopaedic Surgery
DX: M54.5 Low back pain (principal); M51.36 Other intervertebral disc degeneration, lumbar region; M51.37 Other intervertebral disc degeneration, lumbosacral region; M48.061 Spinal stenosis, lumbar region without neurogenic claudication; M48.07 Spinal stenosis, lumbosacral region; E88.2 Lipomatosis, not elsewhere classified
CPT/HCPCS: 72148

== ENCOUNTER → 2019-05-03 10:07 | Outpatient (CLI) | payer MEDICARE, OTHER, SELFPAY ==
[2019-05-03 10:44] LABS: Hemoglobin A1C% w Est Avg Glu 6.7 % (4.0-6.0)
[2019-05-03 10:50] LABS: BUN Creatinine Ratio 21.7 (6-22); Blood Urea Nitrogen 13 mg/dL (7-17); Calcium 9.8 mg/dL (8.4-10.2); Carbon Dioxide 29 mmol/L (22-32); Chloride 99 mmol/L (98-107); Cholesterol 123 mg/dL (140-199); Estimated Glomerular Filt Rate > 60.0 mL/min (>60); Glucose 137 mg/dL (80-110); HDL Cholesterol 36 mg/dL (40-60); HEMOLYSIS < 15 (0-50); LDL Cholesterol Calculated 45 mg/dL (<100); Potassium 3.6 mmol/L (3.4-5.1); Sodium 138 mmol/L (137-145); Triglycerides 211 mg/dL (35-150)
== END ==
PROVIDERS: PCP Physician Assistant; Referring Provider Physician Assistant; Visit Provider Physician Assistant
DX: E11.9 Type 2 diabetes mellitus without complications (principal); E78.2 Mixed hyperlipidemia; I10 Essential (primary) hypertension
CPT/HCPCS: 36415; 80048; 80061; 83036

== ENCOUNTER → 2020-01-12 09:26 | Outpatient (CLI) | payer MEDICARE, OTHER, SELFPAY ==
[2020-01-12 10:39] LABS: Hematocrit 42.8 % (36-46); Hemoglobin 14.3 g/dL (12.0-16.0); Mean Corpuscular HGB Conc 33.3 % (30-36); Mean Corpuscular Hemoglobin 30.2 PG (26-34); Mean Corpuscular Volume 90.5 fL (80-100); Platelet Count 230 X10^3/uL (150-400); Red Blood Cell Count 4.73 X10^6/uL (4.0-5.2); Red Cell Distribution Width 13.4 % (11.6-14.8); White Blood Cell Count 6.9 X10^3/uL (4.5-11.0)
[2020-01-12 10:55] LABS: Hemoglobin A1C% w Est Avg Glu 6.8 % (4.0-6.0)
[2020-01-12 11:02] LABS: Alanine Aminotransferase 28 IU/L (<35); Albumin 4.1 g/dL (3.5-5.0); Albumin Globulin Ratio 1.4 (1.0-2.8); Alkaline Phosphatase 62 U/L (38-126); Aspartate Aminotransferase 28 IU/L (14-36); BUN Creatinine Ratio 21.7 (6-22); Bilirubin Total 0.6 mg/dL (0.2-1.3); Blood Urea Nitrogen 13 mg/dL (7-17); Calcium 9.8 mg/dL (8.4-10.2); Carbon Dioxide 33 mmol/L (22-32); Chloride 99 mmol/L (98-107); Cholesterol 117 mg/dL (140-199); Estimated Glomerular Filt Rate > 60.0 mL/min (>60); Globulin 2.9 g/dL (1.7-4.1); Glucose 130 mg/dL (80-110); HDL Cholesterol 35 mg/dL (40-60); HEMOLYSIS < 15 (0-50); LDL Cholesterol Calculated 40 mg/dL (<100); Potassium 3.6 mmol/L (3.4-5.1); Sodium 137 mmol/L (137-145); Triglycerides 211 mg/dL (35-150)
[2020-01-12 11:05] LABS: Creatinine Urine Random 12.6 mg/dL
[2020-01-12 11:10] LABS: Microalbumin Urine Random < 0.6 mg/dL (0-1.6)
== END ==
PROVIDERS: PCP Nurse Practitioner Family; Referring Provider Nurse Practitioner Family; Visit Provider Nurse Practitioner Family
DX: E11.9 Type 2 diabetes mellitus without complications (principal); E78.2 Mixed hyperlipidemia; I10 Essential (primary) hypertension
CPT/HCPCS: 36415; 80053; 80061; 82043; 82570; 83036; 85027

== ENCOUNTER → 2020-01-19 12:25 | Outpatient (CLI) | payer MEDICARE, OTHER, SELFPAY ==
[2020-01-19 14:33] LABS: Thyroid Stimulating Hormone 1.44 uIU/mL (0.47-4.68)
== END ==
PROVIDERS: PCP Nurse Practitioner Family; Referring Provider Nurse Practitioner Family; Visit Provider Nurse Practitioner Family
DX: E03.9 Hypothyroidism, unspecified (principal)
CPT/HCPCS: 36415; 84443

== ENCOUNTER → 2020-01-29 11:27 | Outpatient (CLI) | payer MEDICARE, OTHER, SELFPAY ==
--- NOTE | 2020-01-29 | DI.MG.S_ITS ---
BILATERAL DIGITAL SCREENING MAMMOGRAM 3D/2D WITH CAD: 01/29/2020 CLINICAL: Routine screening. Comparison is made to exams dated: 01/15/2019 mammogram, 01/09/2018 mammogram, and 12/24/2016 mammogram - [facility]. There are scattered fibroglandular elements in both breasts. Current study was also evaluated with a Computer Aided Detection (CAD) system. No significant masses, calcifications, or other findings are seen in either breast. There has been no significant interval change. IMPRESSION: NEGATIVE There is no mammographic evidence of malignancy. A 1 year screening mammogram is recommended. This exam was interpreted at Station ID: [id number]. NOTE: For mammograms, a report in lay terms will be sent to the patient. Approximately 15% of breast malignancies will not be visualized mammographically. In the management of a palpable breast mass, a negative mammogram must not discourage biopsy of a clinically suspicious lesion. Electronically Signed By: Benson Finley acr/wyatt:01/30/2020 14:10:34 letter sent: Normal Exam ACR BI-RADS Category 1: Negative 3341F
== END ==
PROVIDERS: PCP Nurse Practitioner Family; Referring Provider Nurse Practitioner Family; Visit Provider Nurse Practitioner Family
DX: Z12.31 Encounter for screening mammogram for malignant neoplasm of breast (principal)
CPT/HCPCS: 77063; 77067

== ENCOUNTER → 2020-02-23 12:25 | Outpatient (CLI) | payer MEDICARE, OTHER, SELFPAY ==
[2020-02-23 13:18] LABS: Hematocrit 43.9 % (36-46); Hemoglobin 14.5 g/dL (12.0-16.0); Mean Corpuscular Hemoglobin 30.1 PG (26-34); Mean Corpuscular Volume 91.1 fL (80-100); Platelet Count 268 X10^3/uL (150-400); Red Blood Cell Count 4.82 X10^6/uL (4.0-5.2); Red Cell Distribution Width 13.3 % (11.6-14.8); White Blood Cell Count 7.9 X10^3/uL (4.5-11.0)
[2020-02-23 13:45] LABS: Alanine Aminotransferase 24 IU/L (<35); Albumin 4.3 g/dL (3.5-5.0); Albumin Globulin Ratio 1.6 (1.0-2.8); Alkaline Phosphatase 76 U/L (38-126); Aspartate Aminotransferase 26 IU/L (14-36); BUN Creatinine Ratio 20.8 (6-22); Bilirubin Total 0.5 mg/dL (0.2-1.3); Blood Urea Nitrogen 11 mg/dL (7-17); Calcium 10.2 mg/dL (8.4-10.2); Carbon Dioxide 28 mmol/L (22-32); Chloride 107 mmol/L (98-107); Estimated Glomerular Filt Rate > 60.0 mL/min (>60); Globulin 2.7 g/dL (1.7-4.1); Glucose 91 mg/dL (80-110); HEMOLYSIS < 15 (0-50); Potassium 4.3 mmol/L (3.4-5.1); Sodium 142 mmol/L (137-145)
== END ==
PROVIDERS: PCP Nurse Practitioner Family; Referring Provider Nurse Practitioner Family; Visit Provider Nurse Practitioner Family
DX: Z01.812 Encounter for preprocedural laboratory examination (principal); E11.9 Type 2 diabetes mellitus without complications
CPT/HCPCS: 36415; 80053; 85027

== ENCOUNTER → 2020-05-03 10:02 | Outpatient (CLI) | payer MEDICARE, OTHER, SELFPAY ==
[2020-05-03 10:50] LABS: Hemoglobin A1C% w Est Avg Glu 6.6 % (4.0-6.0)
[2020-05-03 10:54] LABS: Cholesterol 120 mg/dL (140-199); HDL Cholesterol 43 mg/dL (40-60); LDL Cholesterol Calculated 38 mg/dL (<100); Triglycerides 194 mg/dL (35-150)
[2020-05-03 11:26] LABS: Thyroid Stimulating Hormone 1.04 uIU/mL (0.47-4.68)
== END ==
PROVIDERS: PCP Nurse Practitioner Family; Referring Provider Nurse Practitioner Family; Visit Provider Nurse Practitioner Family
DX: E03.9 Hypothyroidism, unspecified (principal); E11.9 Type 2 diabetes mellitus without complications; E78.2 Mixed hyperlipidemia; I10 Essential (primary) hypertension; Z13.6 Encounter for screening for cardiovascular disorders
CPT/HCPCS: 36415; 80061; 83036; 84443

== ENCOUNTER → 2020-05-25 12:44 | Outpatient (CLI) | payer MEDICARE, OTHER, SELFPAY ==
[2020-05-25 14:03] LABS: Hematocrit 44.3 % (36-46); Hemoglobin 14.7 g/dL (12.0-16.0); Mean Corpuscular HGB Conc 33.1 % (30-36); Mean Corpuscular Hemoglobin 29.8 PG (26-34); Mean Corpuscular Volume 90.1 fL (80-100); Platelet Count 225 X10^3/uL (150-400); Red Blood Cell Count 4.92 X10^6/uL (4.0-5.2); Red Cell Distribution Width 13.4 % (11.6-14.8); White Blood Cell Count 7.6 X10^3/uL (4.5-11.0)
[2020-05-25 14:33] LABS: Alanine Aminotransferase 25 IU/L (<35); Albumin 4.2 g/dL (3.5-5.0); Albumin Globulin Ratio 1.6 (1.0-2.8); Alkaline Phosphatase 82 U/L (38-126); Aspartate Aminotransferase 26 IU/L (14-36); BUN Creatinine Ratio 25.4 (6-22); Bilirubin Total 0.4 mg/dL (0.2-1.3); Blood Urea Nitrogen 15 mg/dL (7-17); Calcium 10.2 mg/dL (8.4-10.2); Carbon Dioxide 26 mmol/L (22-32); Chloride 106 mmol/L (98-107); Estimated Glomerular Filt Rate > 60.0 mL/min (>60); Globulin 2.6 g/dL (1.7-4.1); Glucose 86 mg/dL (80-110); HEMOLYSIS < 15 (0-50); Potassium 4.2 mmol/L (3.4-5.1); Sodium 140 mmol/L (137-145); Total Protein 6.8 g/dL (6.3-8.2); Uric Acid 5.7 mg/dL (2.5-6.2)
[2020-05-25 15:20] LABS: Vitamin B12 Reflex MMA if <400 347 pg/mL (239-931)
[2020-05-30 02:36] LABS: Methylmalonic Acid,Serum 170 nmol/L (0-378)
== END ==
PROVIDERS: PCP Nurse Practitioner Family; Referring Provider Nurse Practitioner Family; Visit Provider Nurse Practitioner Family
DX: I10 Essential (primary) hypertension (principal); R00.2 Palpitations; R53.83 Other fatigue; M10.9 Gout, unspecified
CPT/HCPCS: 36415; 80053; 82607; 83735; 83921; 84550; 85027

== ENCOUNTER → 2020-06-01 13:17 | Outpatient (CLI) | payer MEDICARE, OTHER, SELFPAY ==
--- NOTE | 2020-06-21 08:42 | P.HOLT.S_ITS ---
Data Entry Processor Report Referral & Results Date Patient Seen: 06/01/20 Requesting provider: Odilia Camejo Indication: Palpitations Duration of monitoring (days): 7 Diary information: There were 7 patient triggered events and 7 patient diary entries Patient triggered events were associated with (within 45 seconds) sinus rhythm and PVCs Patient diary events were associated with (within 45 seconds) sinus rhythm, PVCs, and PACs Data: Minimum heart rate identified was 49 beats per minute at 06:45 on 06/03/2020 Maximum sinus heart rate was 127 beats per minute at 14:30 on 06/03/2020 Maximum overall heart rate was 167 beats per minute at 06:57 on 06/07/2020 during a 20 beat run of SVT Less than 1% of identified beats or either ventricular supraventricular ectopic in origin which were classify them as rare There were 49 runs of SVT the fastest being the 20 beat run noted above, and this was also the longest run Impression: 7 day nuclear monitoring technician demonstrating rare PACs PVCs and rare runs of brief SVT as above. No clear correlation between anyone particular dysrhythmia and patient reported symptoms although does not appear the runs of SVT are connected with symptoms based on lack of correlation with patient events
== END ==
PROVIDERS: PCP Nurse Practitioner Family; Referring Provider Nurse Practitioner Family; Visit Provider Nurse Practitioner Family
DX: R00.2 Palpitations (principal)
CPT/HCPCS: 93242; 93244

== ENCOUNTER → 2020-12-11 09:58 | Outpatient (CLI) | payer MEDICARE, OTHER, SELFPAY ==
[2020-12-11 12:37] LABS: Hematocrit 43.2 % (36-46); Hemoglobin 14.2 g/dL (12.0-16.0); Mean Corpuscular HGB Conc 32.8 % (30-36); Mean Corpuscular Hemoglobin 29.9 PG (26-34); Mean Corpuscular Volume 91.2 fL (80-100); Platelet Count 229 X10^3/uL (150-400); Red Blood Cell Count 4.73 X10^6/uL (4.0-5.2); Red Cell Distribution Width 13.4 % (11.6-14.8); White Blood Cell Count 6.9 X10^3/uL (4.5-11.0)
[2020-12-11 12:49] LABS: Alanine Aminotransferase 28 IU/L (<35); Albumin Globulin Ratio 1.5 (1.0-2.8); Alkaline Phosphatase 70 U/L (38-126); Aspartate Aminotransferase 26 IU/L (14-36); BUN Creatinine Ratio 26.1 (6-22); Bilirubin Total 0.5 mg/dL (0.2-1.3); Blood Urea Nitrogen 12 mg/dL (7-17); Calcium 9.9 mg/dL (8.4-10.2); Carbon Dioxide 32 mmol/L (22-32); Chloride 107 mmol/L (98-107); Estimated Glomerular Filt Rate > 60.0 mL/min (>60); Globulin 2.7 g/dL (1.7-4.1); Glucose 123 mg/dL (80-110); HEMOLYSIS < 15 (0-50); Hemoglobin A1C% w Est Avg Glu 6.2 % (4.0-6.0); Potassium 4.2 mmol/L (3.4-5.1); Sodium 143 mmol/L (137-145); Total Protein 6.7 g/dL (6.3-8.2)
[2020-12-11 12:58] LABS: Free T4, Direct Thyroxine 1.53 ng/dL (0.78-2.19)
[2020-12-11 13:11] LABS: Thyroid Stimulating Hormone 2.44 uIU/mL (0.47-4.68)
== END ==
PROVIDERS: PCP Nurse Practitioner Family; Referring Provider Nurse Practitioner Family; Visit Provider Nurse Practitioner Family
DX: Z00.00 Encounter for general adult medical examination without abnormal findings (principal); E03.9 Hypothyroidism, unspecified; E11.9 Type 2 diabetes mellitus without complications
CPT/HCPCS: 36415; 80053; 83036; 84439; 84443; 85027

== ENCOUNTER → 2020-12-19 12:12 | Outpatient (CLI) | payer MEDICARE, OTHER, SELFPAY ==
[2020-12-19 14:12] LABS: COVID19 -Nasal RAPID Negative (Negative)
== END ==
PROVIDERS: PCP Nurse Practitioner Family; Visit Provider Nurse Practitioner Family
DX: Z20.822 Contact with and (suspected) exposure to COVID-19 (principal)
CPT/HCPCS: 87635

== ENCOUNTER → 2021-01-03 11:18 | Outpatient (CLI) | payer MEDICARE, OTHER, SELFPAY ==
[2021-01-03 13:07] LABS: COVID19 -Nasal RAPID Negative (Negative)
== END ==
PROVIDERS: PCP Nurse Practitioner Family; Visit Provider Nurse Practitioner
DX: Z20.822 Contact with and (suspected) exposure to COVID-19 (principal); Z01.812 Encounter for preprocedural laboratory examination
CPT/HCPCS: 87635; C9803

== ENCOUNTER → 2021-01-05 13:08 | Outpatient (CLI) | payer MEDICARE, OTHER, SELFPAY ==
--- NOTE | 2021-01-05 14:26 | PM.TREADMILL ---
Cardiac Stress Test Report Referral & Results Date Patient Seen: 01/05/21 Requesting provider: Odilia Camejo Indication: Dizziness Rest ECG: Unremarkable Procedure Note: Today following both written and verbal informed consent, the patient was exercised according to a standard [place] protocol. The patient exercised for a total of 3 minutes 4 seconds achieving a maximum heart rate of 169. Patient's maximum systolic blood pressure was 200. This was an estimated 4.6 MET's. There are no ST-T segment changes identified Rare PACs and PVCs Patient was quickly tachycardic which persisted well into recovery. Normal blood pressure response Function aerobic impairment rates about 10% on the sedentary scale Oxygen saturation was 97% at end of exercise with heart rate of 150 Impression: No evidence of ischemia Minor dysrhythmias as above Please note: Actual ECG tracings can be found in the PACS system.
== END ==
PROVIDERS: PCP Nurse Practitioner Family; Referring Provider Nurse Practitioner Family; Visit Provider Nurse Practitioner Family
DX: R42 Dizziness and giddiness
CPT/HCPCS: 93016; 93017; 93018

== ENCOUNTER → 2021-01-15 14:28 | Outpatient (CLI) | payer MEDICARE, OTHER, SELFPAY ==
--- NOTE | 2021-01-15 14:30 | DI.ECHO.S_ITS ---
[facility]---------+ [facility] +---------+ : : [id number] [place] : : : : [id number] : : : : Phone: [phone]+ Echocardiogram Report + + :Name: JOSE CARLOS MERCADO Study Date: 01/15/2021 Height: 63.5 in: :[facility] ReadingLocation: Weight: 215 lb : : Gender: Female BSA: 2.0 m2 : :: 1940 Age: 80 yrs BP: 142/85 mmHg: :Reason For Study: PALPITATIONS : :Ordering Physician: ANGELINA, : :PEARL Performed By: Aminah Velasco : :Referring: PEARL ALFARO : + + Interpretation Summary The ejection fraction is estimated to be 60-65%. Normal diastolic function. The right ventricle is normal in size and function. Mild mitral and tricuspid regurgitation. Unable to estimate PASP. Compared to the prior study dated 07/27/2015, no significant change. Procedure: A two-dimensional transthoracic echocardiogram with color flow and Doppler was performed. The study quality was technically adequate. Comparison is made with the echocardiogram of 07/27/2015. The patient was in sinus rhythm with heart rates between 64-71 bpm during the exam. Left Ventricle: The left ventricle is normal in size and wall thickness. The ejection fraction is estimated to be 60-65%. There are no focal wall motion abnormalities. Diastolic parameters suggest probable normal left ventricular diastolic function and normal filling pressures. Right Ventricle: The right ventricle is normal in size and function. Atria: The left atrial size is normal. Right atrial size is normal. There is no Doppler evidence for an interatrial shunt. Mitral Valve: The mitral valve is normal in structure and function. There is mild mitral regurgitation. Aortic Valve: The aortic valve is trileaflet. The aortic valve opens well. There is no aortic valve stenosis. No aortic regurgitation is present. Tricuspid Valve: The tricuspid valve is normal in structure and function. There is mild tricuspid regurgitation. Unable to estimate PASP. Pulmonic Valve: The pulmonic valve leaflets are thin and pliable; valve motion is normal. There is mild pulmonic regurgitation. Great Vessels: The aortic root is normal size. The ascending aorta is mildly enlarged. The IVC is of normal diameter and collapses greater than 50% with a sniff. This suggests a low right atrial pressure of 3 mm Hg. Pericardium/ Pleura There is no pericardial effusion. There is no pleural effusion. MMode/2D Measurements & Calculations LVIDd: 4.8 cm LVOT diam: 2.0 cm LVIDs: 3.1 cm Ao root diam: 3.2 cm FS: 35.4 % asc Aorta Diam: 3.4 cm IVSd: 0.92 cm Ao Arch Diam (Prox Trans): 3.2 cm LVPWd: 0.53 cm LV higginbotham. diameter/BSA (cm/m^2): 2.4 LV sys. diameter/BSA (cm/m^2): 1.6 LA A2 area: 21.2 cm2 RA long axis: 5.5 cm LA A4 area: 18.5 cm2 RA area: 20.1 cm2 LA length (vol): 5.3 cm RA vol: 62.0 ml LA vol: 63.1 ml RA : 30.9 ml/m2 LA vol index: 31.5 ml/m2 IVC diam: 1.6 cm RVD1 (basal): 3.7 cm TAPSE: 2.0 cm Doppler Measurements & Calculations Ao V2 max: 122.2 cm/sec LVOT Max Colt: 75.7 cm/sec Ao V2 mean: 87.7 cm/sec LV V1 max P.3 mmHg Ao max P.0 mmHg LV V1 VTI: 19.4 cm Ao mean P.4 mmHg HAYDER(I,D): 2.0 cm2 Ao V2 VTI: 29.4 cm HAYDER(V,D): 1.9 cm2 sev ratio: 0.66 HAYDER indexed to BSA (cm^2/m^2): 1.0 MV E max colt: 64.3 cm/sec TR max colt: 252.0 cm/sec MV A max colt: 85.4 cm/sec TR max P.4 mmHg MV E/A: 0.75 PA V2 max: 96.3 cm/sec Med Peak E' Colt: 7.0 cm/sec PA V2 mean: 62.4 cm/sec E/E' med: 9.2 PA mean P.8 mmHg Lat Peak E' Colt: 11.1 cm/sec PA pr(Accel): 37.9 mmHg E/E' lat: 5.8 E/e' average: 7.5 MV dec time: 0.26 sec SV(LVOT): 59.5 ml Reading Physician:04:28 PM
== END ==
PROVIDERS: PCP Nurse Practitioner Family; Referring Provider Nurse Practitioner Family; Visit Provider Nurse Practitioner Family
DX: I08.1 Rheumatic disorders of both mitral and tricuspid valves (principal); I77.89 Other specified disorders of arteries and arterioles; R00.2 Palpitations
CPT/HCPCS: 93306

== ENCOUNTER → 2021-02-07 10:28 | Outpatient (CLI) | payer MEDICARE, OTHER, SELFPAY ==
--- NOTE | 2021-02-07 10:29 | DI.MG.S_ITS ---
BILATERAL DIGITAL SCREENING MAMMOGRAM 3D/2D WITH CAD: 02/07/2021 CLINICAL: Routine screening. Comparison is made to exams dated: 01/29/2020 mammogram, 01/15/2019 mammogram, and 01/09/2018 mammogram - [facility]. There are scattered fibroglandular elements in both breasts. Current study was also evaluated with a Computer Aided Detection (CAD) system. No significant masses, calcifications, or other findings are seen in either breast. There has been no significant interval change. IMPRESSION: NEGATIVE There is no mammographic evidence of malignancy. A 1 year screening mammogram is recommended. This exam was interpreted at Station ID: [id number]. NOTE: For mammograms, a report in lay terms will be sent to the patient. Approximately 15% of breast malignancies will not be visualized mammographically. In the management of a palpable breast mass, a negative mammogram must not discourage biopsy of a clinically suspicious lesion. Electronically Signed By: Attila wu/wyatt:02/07/2021 11:25:54 letter sent: Normal Exam ACR BI-RADS Category 1: Negative 3341F
== END ==
PROVIDERS: PCP Nurse Practitioner Family; Referring Provider Nurse Practitioner Family; Visit Provider Nurse Practitioner Family
DX: Z12.31 Encounter for screening mammogram for malignant neoplasm of breast (principal)
CPT/HCPCS: 77063; 77067

== ENCOUNTER → 2021-04-11 10:16 | Outpatient (CLI) | payer MEDICARE, OTHER, SELFPAY ==
[2021-04-11 13:15] LABS: Hematocrit 44.7 % (36-46); Hemoglobin 14.8 g/dL (12.0-16.0); Mean Corpuscular HGB Conc 33.1 % (30-36); Mean Corpuscular Hemoglobin 29.8 PG (26-34); Mean Corpuscular Volume 90.1 fL (80-100); Platelet Count 210 X10^3/uL (150-400); Red Blood Cell Count 4.96 X10^6/uL (4.0-5.2); Red Cell Distribution Width 13.2 % (11.6-14.8); White Blood Cell Count 6.3 X10^3/uL (4.5-11.0)
[2021-04-11 13:57] LABS: Alanine Aminotransferase 29 IU/L (<35); Albumin 4.1 g/dL (3.5-5.0); Albumin Globulin Ratio 1.6 (1.0-2.8); Alkaline Phosphatase 66 U/L (38-126); Aspartate Aminotransferase 31 IU/L (14-36); Bilirubin Total 0.6 mg/dL (0.2-1.3); Blood Urea Nitrogen 12 mg/dL (7-17); Calcium 9.7 mg/dL (8.4-10.2); Carbon Dioxide 30 mmol/L (22-32); Chloride 104 mmol/L (98-107); Estimated Glomerular Filt Rate > 60.0 mL/min (>60); Globulin 2.6 g/dL (1.7-4.1); Glucose 115 mg/dL (80-110); HEMOLYSIS < 15 (0-50); Sodium 140 mmol/L (137-145); Total Protein 6.7 g/dL (6.3-8.2); Uric Acid 5.6 mg/dL (2.5-6.2)
[2021-04-11 14:06] LABS: Free T4, Direct Thyroxine 1.71 ng/dL (0.78-2.19)
[2021-04-11 14:10] LABS: Hemoglobin A1C% w Est Avg Glu 6.5 % (4.0-6.0)
[2021-04-11 14:20] LABS: Thyroid Stimulating Hormone 0.624 uIU/mL (0.47-4.68)
== END ==
PROVIDERS: PCP Nurse Practitioner Family; Referring Provider Internal Medicine Cardiovascular Disease; Visit Provider Nurse Practitioner Family
DX: E03.9 Hypothyroidism, unspecified (principal); E11.9 Type 2 diabetes mellitus without complications; I10 Essential (primary) hypertension; M10.9 Gout, unspecified
CPT/HCPCS: 36415; 80053; 83036; 84439; 84443; 84550; 85027

== ENCOUNTER → 2021-09-19 08:51 | Outpatient (CLI) | payer MEDICARE, OTHER, SELFPAY ==
[2021-09-19 09:32] LABS: Hemoglobin A1C% w Est Avg Glu 6.2 % (4.0-6.0)
[2021-09-19 09:52] LABS: Alanine Aminotransferase 19 IU/L (<35); Albumin 3.8 g/dL (3.5-5.0); Albumin Globulin Ratio 1.4 (1.0-2.8); Alkaline Phosphatase 60 U/L (38-126); Aspartate Aminotransferase 34 IU/L (14-36); BUN Creatinine Ratio 22.2 (6-22); Bilirubin Total 0.7 mg/dL (0.2-1.3); Blood Urea Nitrogen 12 mg/dL (7-17); Calcium 9.1 mg/dL (8.4-10.2); Carbon Dioxide 26 mmol/L (22-32); Chloride 109 mmol/L (98-107); Estimated Glomerular Filt Rate > 60 mL/min (>60); Globulin 2.7 g/dL (1.7-4.1); Glucose 125 mg/dL (80-110); HEMOLYSIS 21 (0-50); Magnesium 1.9 mg/dL (1.6-2.3); Sodium 141 mmol/L (137-145); Total Protein 6.5 g/dL (6.3-8.2)
[2021-09-19 09:53] LABS: Creatinine Urine Random 48.4 mg/dL
[2021-09-19 09:56] LABS: Microalbumi Creatinin Ratio Ur 16.5 ug/mg CR (<30); Microalbumin Urine Random 0.8 mg/dL (0-1.6)
[2021-09-20 17:01] LABS: Hep C Virus Ab w/Reflex Quant NEGATIVE s/c (NEGATIVE)
== END ==
PROVIDERS: PCP Nurse Practitioner; Referring Provider Nurse Practitioner; Visit Provider Nurse Practitioner
DX: E11.9 Type 2 diabetes mellitus without complications (principal); E03.9 Hypothyroidism, unspecified; G47.62 Sleep related leg cramps; H81.10 Benign paroxysmal vertigo, unspecified ear; Z11.59 Encounter for screening for other viral diseases; E78.5 Hyperlipidemia, unspecified; I10 Essential (primary) hypertension
CPT/HCPCS: 36415; 80053; 82043; 82570; 83036; 83735; 84443; 86803

== ENCOUNTER → 2021-10-05 12:21 | Outpatient (CLI) | payer MEDICARE, OTHER, SELFPAY | PROVIDERS: PCP Nurse Practitioner; Referring Provider Nurse Practitioner; Visit Provider Nurse Practitioner | DX: M81.0 Age-related osteoporosis without current pathological fracture (principal) | CPT/HCPCS: 77080 ==

== ENCOUNTER → 2021-10-29 10:16 | Outpatient (CLI) | payer MEDICARE, OTHER, SELFPAY ==
[2021-10-29 13:22] LABS: Cholesterol 96 mg/dL (140-199); HDL Cholesterol 41 mg/dL (40-60); LDL Cholesterol Calculated 35 mg/dL (<100); Triglycerides 100 mg/dL (35-150)
== END ==
PROVIDERS: PCP Nurse Practitioner; Referring Provider Nurse Practitioner Acute Care; Visit Provider Nurse Practitioner Acute Care
DX: E78.5 Hyperlipidemia, unspecified (principal)
CPT/HCPCS: 36415; 80061

== ENCOUNTER 2021-11-12 10:28 | Emergency (ER) | payer MEDICARE, OTHER, SELFPAY ==
[2021-11-12] VITALS (11 sets, daily range): BP systolic 105–141; BP diastolic 57–78; PULSE 81–123; RESP 11–24; TEMP 36.2; O2SAT 96–99; BMI 34.2
--- NOTE | 2021-11-12 10:35 | ED_ITS ---
HPI - Nausea/Vomiting/Diarrhea General Chief complaint: Nausea/Vomiting/Diarrhea Stated complaint: Diarrhea since , fast heart rate Time Seen by Provider: 11/12/21 10:32 History of Present Illness HPI Narrative: 80F nonsmoker with history of Afib (not anticoagulated), hypertension, hyperlipidemia, type 2 diabetes presents with a chief complaint of multiple days of frequent diarrhea. She states that she is been having 10-20 watery, liquid stools over the course of the day and become a bit fatigued, if not lightheaded. She denies any chest pain or shortness of breath. She is had no fever or chills. She denies nausea or vomiting. She denies antibiotic use within the past few years, recent travel or exposure to ill persons but does question whether not she may have eaten some bad food on . She denies any new medication or dietary change Related Data Home Medications Medication Instructions Recorded Confirmed aspirin 81 mg tablet,delayed 81 mg PO QPM ##0 09/10/10 09/17/21 release lactobacillus combination no.4 3 3,000 mmu cells PO DAILY ##0 11/24/12 09/17/21 billion cell capsule (Probiotic) coenzyme Q10 200 mg capsule (Co 200 mg PO BID ##0 06/25/16 09/17/21 Q-10) metronidazole 1 % topical gel 1 applic topical DIRECTED PRN 10/23/17 09/17/21 Unlisted cholecalciferol (vitamin D3) 25 1,000 unit PO DAILY 12/15/17 09/17/21 mcg (1,000 unit) capsule (Vitamin D3) vit C,E,zinc,copper-yallg4s 250 1 cap PO DAILY 10/28/18 09/17/21 mg-lutein 5 mg-zeaxanthin 1 mg capsule (Ocuvite Adult 50 Plus) B complex vitamin PO .QDAY 05/27/20 09/17/21 Previous Rx's Medication Instructions Recorded Glucometer #1 ea 11/18/18 ketoconazole 2 % topical cream 1 applictn topical BID #30 grams 01/19/20 clobetasol 0.05 % topical cream 1 applic topical BID #30 grams 06/02/20 metformin 500 mg tablet See Rx Instructions PO BID #270 04/19/21 tabs atorvastatin 20 mg tablet (Lipitor) 20 mg PO BEDTIME #90 tabs 05/29/21 telmisartan 40 mg tablet 40 mg PO QDAY #90 tabs 05/29/21 Freestyle Lite Test Strips #200 ea 09/27/21 levothyroxine 112 mcg tablet 112 mcg PO DAILY #90 tabs 09/27/21 azithromycin 500 mg tablet 500 mg PO DAILY 3 days #3 tabs 11/12/21 fidaxomicin 200 mg tablet 200 mg PO BID 10 days #20 tabs 11/12/21 vancomycin 125 mg capsule 125 mg PO QID 10 days #40 caps 11/12/21 (Vancocin) Allergies Allergy/AdvReac Type Severity Reaction Status Date / Time Penicillins [PENICILLINS] Allergy Severe HIVES Verified 11/12/21 10:48 cephradine [CEPHRADINE] AdvReac Severe RASH Verified 11/12/21 10:48 codeine [CODEINE] AdvReac Severe HIVES Verified 11/12/21 10:48 Pertussis Vaccines AdvReac Severe IT GAVE Verified 11/12/21 10:48 [PERTUSSIS VACCINES] ME THE WHOOPING COUGH WHEN I WAS AN . lisinopril [LISINOPRIL] AdvReac Mild COUGH Verified 11/12/21 10:48 Review of Systems Review of Systems Narrative: GENERAL: Denies chills, fatigue, malaise, fever, sweats. HEENT: Denies sinus pain, ear pain, sore throat, difficulty swallowing, dizziness. RESPIRATORY: Denies dyspnea, cough, wheezing, hemoptysis, sputum. CARDIOVASCULAR: Denies chest pain, palpitations, orthopnea, edema, GASTROINTESTINAL: See HPI : Denies dysuria, frequency, incontinence, hematuria, urinary retention. MUSCULOSKELETAL: denies weakness, joint pain, or bony pain SKIN: Denies rash, skin lesions, or other NEUROLOGIC: Denies weakness, headache, numbness, change in speech, confusion, seizures, incoordination. PSYCHIATRIC: No concerning psychosocial issues. 12 point review of systems is negative except for those stated above Patient History Medical History Actinic keratosis Anxiety Arthritis Basal cell carcinoma (01/2016) Benign positional vertigo Cataracts, bilateral (~2009) Diabetes GERD (gastroesophageal reflux disease) Gout History of Mohs micrographic surgery for skin cancer Hx of Moh's micrographic surgery for skin cancer (01/2016) Hyperlipemia Hypertension Hypothyroidism Intermittent palpitations Intertrigo Lightheadedness Obstructive sleep apnea (~12/2015) Postmenopausal Squamous cell carcinoma Umbilical hernia Surgical History History of colonoscopy Hx of cataract surgery (2008) Hx of tubal ligation Status post delivery (1977) Status post cholecystectomy (1995) Status post tonsillectomy and adenoidectomy (1943) Family History Father CAD (coronary artery disease) CVA (cerebral vascular accident) Mother Brain cancer Diabetes mellitus Lung cancer Brother Cancer Social History household members: spouse Smoking Status: Never smoker second hand exposure: Yes (I grew up around smoke, both of my parents smoked.) alcohol intake: former substance use type: does not use Smoking Status: Never smoker alcohol intake frequency: 0-2 drinks per day Substance Use Type: does not use Exam Narrative Exam Narrative: GENERAL: [80] year old patient appears stated age. Well-developed patient, in mild distress. HEAD: Atraumatic. Normocephalic. EYES: Pupils equal round and reactive. Extraocular motions intact. No scleral icterus. No injection or drainage. ENT: Nose without bleeding, purulent drainage. Throat without erythema, tonsillar hypertrophy or exudate. Airway patent. NECK: Trachea midline. Non tender CARDIOVASCULAR: Regular rate and rhythm without murmurs, gallops, or rubs. RESPIRATORY: Clear to auscultation. Breath sounds equal bilaterally. No wheezes, rales, or rhonchi. GASTROINTESTINAL: Abdomen soft, non-tender, nondistended. EXTREMITIES: No edema or joint tenderness. BACK: Nontender without deformity or crepitance. No flank tenderness. NEURO: AOx3. SKIN: No rash or erythema of visible areas Initial Vital Signs Initial Vital Signs: Vital Signs Pulse Rate 111 H 11/12/21 10:39 Pulse Oximetry 98 11/12/21 10:39 Scores CHADS-VASc Congestive heart failure: no Hypertension: yes Age 75 years or older: yes Diabetes mellitus: yes Stroke, TIA, or TE: no Vascular disease: no Age 65 to 74 years: no Sex category (female): Female CHADS-VASc Score: 5 Course Orders Ordered: ED Orders 11/12/21 10:36 XR acute abdomen series Stat 11/12/21 10:40 Complete Blood Count AUTO DIFF Stat Comprehensive Metabolic Panel Stat 11/12/21 10:45 EKG-12 Lead Routine 11/12/21 11:16 COVID19 -Nasal RAPID/Pre-Proc Stat 11/12/21 12:18 GI Panel (Film Array) Stat Discontinued Medications Sodium Chloride (Normal Saline 0.9%) 1,000 mls @ 1,000 mls/hr IV BOLUS ONE Stop: 11/12/21 11:34 Last Infusion: 11/12/21 12:53 Dose: 0 mls/hr Documented By: Admin: 11/12/21 11:40 Dose: 1,000 mls/hr Documented By: [facility] Vital Signs Vital signs: Vital Signs - 8 hr 11/12/21 10:48 11/12/21 10:39 11/12/21 11:12 Temperature 97.2 F L Pulse Rate 116 H 111 H 121 H Respiratory Rate 20 Blood Pressure 105/70 Pulse Oximetry 97 98 97 Oxygen Delivery Method Room Air 11/12/21 11:30 11/12/21 11:33 11/12/21 11:33 Temperature Pulse Rate 123 H 115 H Respiratory Rate 12 16 Blood Pressure 117/78 Pulse Oximetry 96 96 Oxygen Delivery Method Room Air 11/12/21 12:00 11/12/21 12:00 11/12/21 12:18 Temperature Pulse Rate 92 H Respiratory Rate 15 Blood Pressure 125/66 126/57 L Pulse Oximetry 96 Oxygen Delivery Method 11/12/21 12:18 11/12/21 12:30 11/12/21 12:30 Temperature Pulse Rate 88 86 Respiratory Rate 17 12 Blood Pressure 122/62 Pulse Oximetry 99 98 Oxygen Delivery Method 11/12/21 13:00 11/12/21 13:00 11/12/21 13:30 Temperature Pulse Rate 83 Respiratory Rate 15 Blood Pressure 127/57 L 114/59 L Pulse Oximetry 98 Oxygen Delivery Method 11/12/21 13:30 11/12/21 14:00 11/12/21 14:00 Temperature Pulse Rate 81 87 Respiratory Rate 11 L 24 Blood Pressure 141/68 H Pulse Oximetry 97 98 Oxygen Delivery Method MDM - Nausea/Vomiting/Diarrhea Lab Data Result diagrams: 11/12/21 10:40 08/22/22 10:40 Labs: Lab Results 11/12/21 11/12/21 11/12/21 Range/Units 10:40 10:40 11:16 WBC 8.9 (4.5-11.0) X10^3/uL RBC 5.23 H (4.0-5.2) X10^6/uL Hgb 15.7 (12.0-16.0) g/dL Hct 45.7 (36-46) % MCV 87.3 (80-100) fL MCH 30.0 (26-34) PG MCHC 34.4 (30-36) % RDW 13.0 (11.6-14.8) % Plt Count 235 (150-400) X10^3/uL Neut % (Auto) 77.0 H (50-75) % Lymph % (Auto) 10.6 L (25-40) % [place] % (Auto) 11.9 (3-14) % Eos % (Auto) 0.2 L (2-4) % Baso % (Auto) 0.3 (0-2) % Neut # (Auto) 6900 (4978-4356) /uL Lymph # (Auto) 900 L (4167-5198) /uL [place] # (Auto) 1100 H (0-900) /uL Eos # (Auto) 0 (0-450) /uL Baso # (Auto) 0 (0-100) /uL Sodium 134 L (137-145) mmol/L Potassium 3.2 L (3.4-5.1) mmol/L Chloride 102 (98-107) mmol/L Carbon Dioxide 21 L (22-32) mmol/L BUN 12 (7-17) mg/dL Creatinine 0.79 (0.52-1.04) mg/dL Estimated GFR > 60 (>60) mL/min BUN/Creatinine Ratio 15.2 (6-22) Glucose 149 H (80-110) mg/dL Calcium 9.1 (8.4-10.2) mg/dL Total Bilirubin 0.7 (0.2-1.3) mg/dL AST 37 H (14-36) IU/L ALT 33 (<35) IU/L Alkaline Phosphatase 59 (38-126) U/L Total Protein 6.7 (6.3-8.2) g/dL Albumin 3.6 (3.5-5.0) g/dL Globulin 3.1 (1.7-4.1) g/dL Albumin/Globulin Ratio 1.2 (1.0-2.8) Stl C. cayetanensis PCR (Not Detect) Stool Rotavirus (PCR) (Not Detect) Stool Adenovirus (PCR) (Not Detect) Stool Astrovirus (PCR) (Not Detect) Stool Cryptosporidium PCR (Not Detect) Stl E.coli Shiga Tox PCR (Not Detect) St Sh/Enteroin Ecoli PCR (Not Detect) Stool E coli O157 PCR Stl Enterotoxigenic E PCR (Not Detect) Stool EPEC (PCR) (Not Detect) Stl E. histolytica PCR (Not Detect) Stool Giardia Lamblia PCR (Not Detect) Stool Sapovirus (PCR) (Not Detect) Stl P. shigelloides PCR (Not Detect) St Y.enterocolitica PCR (Not Detect) Stool Vibrio (PCR) (Not Detect) Stl Vibrio cholerae PCR (Not Detect) Stl Enteroaggr Ecoli PCR (Not Detect) Stl Norovirus GI/GII PCR (Not Detect) Campylobacter (PCR) (Not Detect) C. difficile Tox (PCR) (Not Detect) SARS-CoV-2 (PCR) Negative (Negative) Salmonella (PCR) (Not Detect) 11/12/21 Range/Units 12:18 WBC (4.5-11.0) X10^3/uL RBC (4.0-5.2) X10^6/uL Hgb (12.0-16.0) g/dL Hct (36-46) % MCV (80-100) fL MCH (26-34) PG MCHC (30-36) % RDW (11.6-14.8) % Plt Count (150-400) X10^3/uL Neut % (Auto) (50-75) % Lymph % (Auto) (25-40) % [place] % (Auto) (3-14) % Eos % (Auto) (2-4) % Baso % (Auto) (0-2) % Neut # (Auto) (5266-6408) /uL Lymph # (Auto) (2405-0760) /uL [place] # (Auto) (0-900) /uL Eos # (Auto) (0-450) /uL Baso # (Auto) (0-100) /uL Sodium (137-145) mmol/L Potassium (3.4-5.1) mmol/L Chloride (98-107) mmol/L Carbon Dioxide (22-32) mmol/L BUN (7-17) mg/dL Creatinine (0.52-1.04) mg/dL Estimated GFR (>60) mL/min BUN/Creatinine Ratio (6-22) Glucose (80-110) mg/dL Calcium (8.4-10.2) mg/dL Total Bilirubin (0.2-1.3) mg/dL AST (14-36) IU/L ALT (<35) IU/L Alkaline Phosphatase (38-126) U/L Total Protein (6.3-8.2) g/dL Albumin (3.5-5.0) g/dL Globulin (1.7-4.1) g/dL Albumin/Globulin Ratio (1.0-2.8) Stl C. cayetanensis PCR Not detected (Not Detect) Stool Rotavirus (PCR) Not detected (Not Detect) Stool Adenovirus (PCR) Not detected (Not Detect) Stool Astrovirus (PCR) Not detected (Not Detect) Stool Cryptosporidium PCR Not detected (Not Detect) Stl E.coli Shiga Tox PCR Not detected (Not Detect) St Sh/Enteroin Ecoli PCR Not detected (Not Detect) Stool E coli O157 PCR Not Reportable Stl Enterotoxigenic E PCR Not detected (Not Detect) Stool EPEC (PCR) Not detected (Not Detect) Stl E. histolytica PCR Not detected (Not Detect) Stool Giardia Lamblia PCR Not detected (Not Detect) Stool Sapovirus (PCR) Not detected (Not Detect) Stl P. shigelloides PCR Not detected (Not Detect) St Y.enterocolitica PCR Not detected (Not Detect) Stool Vibrio (PCR) Not detected (Not Detect) Stl Vibrio cholerae PCR Not detected (Not Detect) Stl Enteroaggr Ecoli PCR Not detected (Not Detect) Stl Norovirus GI/GII PCR Not detected (Not Detect) Campylobacter (PCR) Detected H (Not Detect) C. difficile Tox (PCR) Detected H (Not Detect) SARS-CoV-2 (PCR) (Negative) Salmonella (PCR) Not detected (Not Detect) Urine Dip Bedside Urine Glucose Negative Bedside Urine Bilirubin - Negative Bedside Urine Ketone - Negative Urine Specific [place] 1.010 Bedside Urine Occult Blood - Negative Bedside Urine pH 6.0 Bedside Urine Protein - Negative Bedside Urine Urobilinogen - Negative Bedside Urine Nitrite - Negative Bedside Urine Leukocytes - Negative Esterase Imaging Data Chest x-ray: Radiologist's Impression: [address] [address] XRay Report Signed Patient: Natalie Gardner MR#: [id number] : 1940 Acct:[id number] Age/Sex: 80 / F Date of Service: 11/12/21 Loc: ED Accession Number: [id number] ?? Procedure: XR acute abdomen series Ordering Provider: Mickey Bolivar D.O. PROCEDURE:? XR ACUTE ABDOMEN SERIES ? INDICATIONS:? Abdominal pain ? TECHNIQUE:? One view chest and two views of the abdomen were acquired.? ? COMPARISON:? None. ? FINDINGS:? ? Surgical changes and devices:? Cholecystectomy clips. ? Chest:? Lungs are clear.? Heart size is normal.? No pleural effusions.? No pneumoperitoneum.? ? Abdomen:? Nonspecific bowel gas pattern.? Mid abdominal air-fluid level without dilated loops noted.? No suspicious calcifications.? Visualized solid organ contours appear normal.? ? Bones:? No suspicious bony lesions.? ? IMPRESSION:? Nonspecific bowel gas pattern with air-fluid levels without dilated loops. ? Comment:? Consider CT abdomen and pelvis if suspect significant acute abdominal process. ? ? Dictated by: Mina Durán M.D. on 11/12/2021 at 11:58 ? ? Approved by: Mina Durán M.D. on 11/12/2021 at 12:00 ? ECG Data Interpretation: [1045] EKG demonstrates rapid atrial fibrillation, rate 135. No ST segmental elevation or depression. No T wave inversions [1156] EKG is normal sinus rhythm rate [103 ] and free of any signs of ischemia or ectopy. No ST segmental elevation or depression. No T wave inversions Discharge Plan Departure Patient Disposition: Home Clinical Impression: C. difficile colitis, Campylobacter diarrhea, Acute hypokalemia Instructions: Diarrhea, DI for Clostridioides difficile Infection Activity Restrictions/Additional Instructions: *You have been diagnosed with [ C. diff colitis and campylobacter] *What to do: *Please continue to take your regular medications as directed. [ x] New medication prescriptions sent to your pharmacy: [[facility] ] [ ] New medication written as a paper prescription [ ] No new medications given *Please follow up with your primary care provider in 2-3 days, call for an appointment. Let them know you were seen in the Emergency Department and that we ask that you be seen in follow up. We will electronically transmit a record of today's note if your PCP is in our system *If you do not have a primary care provider please contact the [facility] Resource line at [phone]. They will ask some questions about your medical history and help get you set up with a doctor in the community. *Return to Emergency Department if you should have any new, worsening or concerning symptoms, such as [fever greater than 101 F, shaking chills, worsening pain, persistent vomiting or other bothersome symptoms] Prescriptions: New fidaxomicin 200 mg tablet 200 mg PO BID 10 Days Qty: 20 0RF azithromycin 500 mg tablet 500 mg PO DAILY 3 Days Qty: 3 0RF vancomycin [Vancocin] 125 mg capsule 125 mg PO QID 10 Days Qty: 40 0RF Rx Instructions: PHARMACY: Prefer Fidaxomicin, Vanco written as 2nd choice if Fidaxo not available or too expensive No Action cholecalciferol (vitamin D3) [Vitamin D3] 1,000 unit Capsule 1,000 unit PO DAILY Label Comments: 1,000 IU PO QDAY aspirin 81 mg Tablet,Delayed Release (Dr/Ec) 81 mg PO QPM Qty: 0 lactobacillus combination no.4 [Probiotic] 3 billion cell Capsule 3,000 mmu cells PO DAILY Qty: 0 Label Comments: unsure of dose coenzyme Q10 [Co Q-10] 200 mg Capsule 200 mg PO BID Qty: 0 (DME) Glucometer Qty: 1 0RF Dose Instruction: As directed Rx Instructions: Freestyle [place] Lite B complex vitamin PO .QDAY clobetasol 0.05 % cream 1 applic TOP BID Qty: 30 0RF Rx Instructions: as needed atorvastatin [Lipitor] 20 mg tablet 20 mg PO BEDTIME Qty: 90 3RF telmisartan 40 mg tablet 40 mg PO QDAY Qty: 90 3RF Ocuvite Adult 50 Plus 250-5-1 mg capsule 1 cap PO DAILY ketoconazole 2 % cream 1 applictn TOP BID Qty: 30 0RF Rx Instructions: use BID on skin under right breast metformin 500 mg tablet See Rx Instructions PO BID Qty: 270 3RF Dose Instruction: PO BID; 500 mg PO QAM and 1,000 mg (500 mg x 2) PO in the evening. Rx Instructions: 500 mg PO QAM and 1,000 mg (500 mg x 2) PO in the evening. levothyroxine 112 mcg tablet 112 mcg PO DAILY Qty: 90 1RF (DME) Freestyle Lite Test Strips Qty: 200 3RF Rx Instructions: Test Blood sugar Twice metronidazole 1 % gel 1 applic Topical DIRECTED PRN (Reason: Unlisted) Referrals: Jennifer Devlin ARNP [Primary Care Provider] - Visit Report Forms: Patient Portal/API
--- NOTE | 2021-11-12 10:36 | DI.RAD.S_ITS ---
PROCEDURE: XR ACUTE ABDOMEN SERIES INDICATIONS: Abdominal pain TECHNIQUE: One view chest and two views of the abdomen were acquired. COMPARISON: None. FINDINGS: Surgical changes and devices: Cholecystectomy clips. Chest: Lungs are clear. Heart size is normal. No pleural effusions. No pneumoperitoneum. Abdomen: Nonspecific bowel gas pattern. Mid abdominal air-fluid level without dilated loops noted. No suspicious calcifications. Visualized solid organ contours appear normal. Bones: No suspicious bony lesions. IMPRESSION: Nonspecific bowel gas pattern with air-fluid levels without dilated loops. Comment: Consider CT abdomen and pelvis if suspect significant acute abdominal process. Dictated by: Mina Durán M.D. on 11/12/2021 at 11:58 Approved by: Mina Durán M.D. on 11/12/2021 at 12:00
[2021-11-12 10:56] LABS: Add Manual Diff / Slide Review NO; Basophils Absolute Auto 0 /uL (0-100); Basophils Percent Auto 0.3 % (0-2); Eosinophils Absolute Auto 0 /uL (0-450); Eosinophils Percent Auto 0.2 % (2-4); Hematocrit 45.7 % (36-46); Hemoglobin 15.7 g/dL (12.0-16.0); Lymphocytes Absolute Auto 900 /uL (1100-4500); Lymphocytes Percent Auto 10.6 % (25-40); Mean Corpuscular HGB Conc 34.4 % (30-36); Mean Corpuscular Volume 87.3 fL (80-100); Monocytes Absolute Auto 1100 /uL (0-900); Monocytes Percent Auto 11.9 % (3-14); Neutrophils Absolute Auto 6900 /uL (1500-7000); Platelet Count 235 X10^3/uL (150-400); Red Blood Cell Count 5.23 X10^6/uL (4.0-5.2); White Blood Cell Count 8.9 X10^3/uL (4.5-11.0)
[2021-11-12 11:07] LABS: Alanine Aminotransferase 33 IU/L (<35); Albumin 3.6 g/dL (3.5-5.0); Albumin Globulin Ratio 1.2 (1.0-2.8); Alkaline Phosphatase 59 U/L (38-126); Aspartate Aminotransferase 37 IU/L (14-36); BUN Creatinine Ratio 15.2 (6-22); Bilirubin Total 0.7 mg/dL (0.2-1.3); Blood Urea Nitrogen 12 mg/dL (7-17); Calcium 9.1 mg/dL (8.4-10.2); Carbon Dioxide 21 mmol/L (22-32); Chloride 102 mmol/L (98-107); Estimated Glomerular Filt Rate > 60 mL/min (>60); Globulin 3.1 g/dL (1.7-4.1); Glucose 149 mg/dL (80-110); HEMOLYSIS < 15 (0-50); Potassium 3.2 mmol/L (3.4-5.1); Sodium 134 mmol/L (137-145); Total Protein 6.7 g/dL (6.3-8.2)
[2021-11-12] MEDS: SODIUM CHLORIDE 0.9% 1,000 ML 1000 ML IV (11:40)
[2021-11-12 11:44] LABS: COVID19 -Nasal RAPID Negative (Negative)
[2021-11-12 13:53] LABS: Adenovirus F 40/41 Not Detected (Not Detect); Astrovirus Not Detected (Not Detect); Campylobacter Detected (Not Detect); Clostridium difficile toxin AB Detected (Not Detect); Cryptosporidium Not Detected (Not Detect); Cyclospora cayetanensis Not Detected (Not Detect); Entamoeba histolytica Not Detected (Not Detect); Enteroaggregative E.coli Not Detected (Not Detect); Enteropathogenic E.coli Not Detected (Not Detect); Enterotoxigenic E.coli It/st Not Detected (Not Detect); Giardia lamblia Not Detected (Not Detect); Norovirus GI/GII Not Detected (Not Detect); Plesiomonsa shigelloides Not Detected (Not Detect); Rotavirus A Not Detected (Not Detect); Salmonella Not Detected (Not Detect); Sapovirus Not Detected (Not Detect); Shiga-like toxin-prod E.coli Not Detected (Not Detect); Shigella/Enteroinvasive E.coli Not Detected (Not Detect); Vibrio Not Detected (Not Detect); Vibrio cholerae Not Detected (Not Detect); Yersinia enterocolitica Not Detected (Not Detect)
[2021-11-14 14:52] LABS: C difficie Toxins A and B, EIA Negative (Negative)
== END 2021-11-12 14:28 | disposition home or self-care (01) ==
PROVIDERS: Emergency Provider Emergency Medicine; PCP Nurse Practitioner
DX: A04.72 Enterocolitis due to Clostridium difficile, not specified as recurrent (principal); A04.5 Campylobacter enteritis; E87.6 Hypokalemia; Z20.822 Contact with and (suspected) exposure to COVID-19
CPT/HCPCS: 36415; 74022; 80053; 81003; 85025; 87324; 87507; 87635; 93005; 96360; 99284; C9803

== ENCOUNTER → 2021-12-28 12:00 | Outpatient (CLI) | payer MEDICARE, OTHER, SELFPAY ==
[2021-12-28 15:17] LABS: Thyroid Stimulating Hormone 1.54 uIU/mL (0.47-4.68)
== END ==
PROVIDERS: PCP Nurse Practitioner; Referring Provider Nurse Practitioner; Visit Provider Nurse Practitioner
DX: E03.9 Hypothyroidism, unspecified (principal)
CPT/HCPCS: 36415; 84443

== ENCOUNTER → 2022-03-22 11:45 | Outpatient (CLI) | payer MEDICARE, OTHER, SELFPAY ==
--- NOTE | 2022-03-22 11:46 | DI.MG.S_ITS ---
BILATERAL DIGITAL SCREENING MAMMOGRAM 3D/2D WITH CAD: 03/22/2022 CLINICAL: Routine screening. Comparison is made to exams dated: 02/07/2021 mammogram, 01/29/2020 mammogram, and 01/15/2019 mammogram - [facility]. Both breasts are almost entirely fatty (category a/<25% glandular tissue). Current study was also evaluated with a Computer Aided Detection (CAD) system. No significant masses, calcifications, or other findings are seen in either breast. There has been no significant interval change. IMPRESSION: NEGATIVE There is no mammographic evidence of malignancy. A 1 year screening mammogram is recommended. Based on the Tyrer Cuzick model (a risk assessment model) the patient's lifetime risk is 2.1% and her 10 year risk is 0.0%. According to the ACR, ACS, and NCCN guidelines, an annual breast MRI exam along with mammogram is recommended if the patient's lifetime risk is 20% or greater. This exam was interpreted at Station ID: [id number]. NOTE: For mammograms, a report in lay terms will be sent to the patient. Approximately 15% of breast malignancies will not be visualized mammographically. In the management of a palpable breast mass, a negative mammogram must not discourage biopsy of a clinically suspicious lesion. Electronically Signed By: Johana gonzalez/wyatt:03/22/2022 16:05:46 letter sent: Normal Exam ACR BI-RADS Category 1: Negative [id number]
[2022-03-22 13:45] LABS: Hemoglobin A1C% w Est Avg Glu 6.2 % (4.0-6.0)
[2022-03-22 14:15] LABS: Alanine Aminotransferase 24 IU/L (<35); Albumin 4.1 g/dL (3.5-5.0); Albumin Globulin Ratio 1.4 (1.0-2.8); Alkaline Phosphatase 73 U/L (38-126); Aspartate Aminotransferase 25 IU/L (14-36); BUN Creatinine Ratio 22.4 (6-22); Bilirubin Total 0.6 mg/dL (0.2-1.3); Blood Urea Nitrogen 13 mg/dL (7-17); Calcium 9.8 mg/dL (8.4-10.2); Carbon Dioxide 27 mmol/L (22-32); Chloride 105 mmol/L (98-107); Estimated Glomerular Filt Rate > 60 mL/min (>60); Globulin 2.9 g/dL (1.7-4.1); Glucose 88 mg/dL (80-110); HEMOLYSIS < 15 (0-50); Potassium 4.3 mmol/L (3.4-5.1); Sodium 141 mmol/L (137-145)
== END ==
PROVIDERS: PCP Nurse Practitioner; Referring Provider Nurse Practitioner; Visit Provider Nurse Practitioner
DX: Z12.31 Encounter for screening mammogram for malignant neoplasm of breast (principal); E11.9 Type 2 diabetes mellitus without complications; I10 Essential (primary) hypertension; E03.9 Hypothyroidism, unspecified; E87.6 Hypokalemia
CPT/HCPCS: 36415; 77063; 77067; 80053; 83036; 84443

== ENCOUNTER → 2022-05-30 09:32 | Outpatient (CLI) | payer MEDICARE, OTHER, SELFPAY ==
[2022-05-30 10:26] LABS: Add Manual Diff / Slide Review NO; Basophils Absolute Auto 100 /uL (0-100); Eosinophils Absolute Auto 200 /uL (0-450); Eosinophils Percent Auto 2.9 % (2-4); Hematocrit 42.4 % (36-46); Lymphocytes Absolute Auto 2000 /uL (1100-4500); Lymphocytes Percent Auto 30.4 % (25-40); Mean Corpuscular HGB Conc 33.1 % (30-36); Mean Corpuscular Hemoglobin 30.1 PG (26-34); Monocytes Absolute Auto 600 /uL (0-900); Monocytes Percent Auto 9.6 % (3-14); Neutrophils Absolute Auto 3700 /uL (1500-7000); Neutrophils Percent Auto 56.1 % (50-75); Platelet Count 211 X10^3/uL (150-400); Red Blood Cell Count 4.66 X10^6/uL (4.0-5.2); Red Cell Distribution Width 13.5 % (11.6-14.8); White Blood Cell Count 6.7 X10^3/uL (4.5-11.0)
[2022-05-30 10:52] LABS: Hemoglobin A1C% w Est Avg Glu 6.1 % (4.0-6.0)
[2022-05-30 11:17] LABS: Alanine Aminotransferase 31 IU/L (<35); Albumin 3.9 g/dL (3.5-5.0); Albumin Globulin Ratio 1.3 (1.0-2.8); Alkaline Phosphatase 58 U/L (38-126); Aspartate Aminotransferase 33 IU/L (14-36); BUN Creatinine Ratio 25.9 (6-22); Bilirubin Total 0.7 mg/dL (0.2-1.3); Blood Urea Nitrogen 15 mg/dL (7-17); Calcium 9.1 mg/dL (8.4-10.2); Carbon Dioxide 27 mmol/L (22-32); Chloride 104 mmol/L (98-107); Cholesterol 127 mg/dL (140-199); Estimated Glomerular Filt Rate > 60 mL/min (>60); Globulin 2.9 g/dL (1.7-4.1); Glucose 111 mg/dL (80-110); HDL Cholesterol 47 mg/dL (40-60); LDL Cholesterol Calculated 53 mg/dL (<100); Magnesium 1.9 mg/dL (1.6-2.3); Potassium 4.1 mmol/L (3.4-5.1); Sodium 137 mmol/L (137-145); Total Protein 6.8 g/dL (6.3-8.2); Triglycerides 135 mg/dL (35-150)
[2022-05-30 11:26] LABS: HEMOLYSIS 57 (0-50)
[2022-05-30 11:38] LABS: Free T4, Direct Thyroxine 1.46 ng/dL (0.78-2.19)
[2022-05-30 11:55] LABS: Thyroid Stimulating Hormone 1.83 uIU/mL (0.47-4.68)
== END ==
PROVIDERS: PCP Nurse Practitioner; Referring Provider Internal Medicine Cardiovascular Disease; Visit Provider Internal Medicine Cardiovascular Disease
DX: I10 Essential (primary) hypertension (principal); Z86.39 Personal history of other endocrine, nutritional and metabolic disease; E78.5 Hyperlipidemia, unspecified; R06.02 Shortness of breath; Z13.1 Encounter for screening for diabetes mellitus; I48.91 Unspecified atrial fibrillation; E83.42 Hypomagnesemia; E03.9 Hypothyroidism, unspecified
CPT/HCPCS: 36415; 80053; 80061; 83036; 83735; 84439; 84443; 85025

== ENCOUNTER → 2022-06-11 12:11 | Outpatient (CLI) | payer MEDICARE, OTHER, SELFPAY ==
[2022-06-11 13:35] LABS: Erythrocyte Sedimentation Rate 6 MM/HR (0-20)
[2022-06-11 13:48] LABS: C-Reactive Protein Quant < 0.5 mg/dL (<1.0); Uric Acid 5.5 mg/dL (2.5-6.2)
[2022-06-11 13:49] LABS: Rheumatoid Factor < 8.6 IU/mL (<12.0)
[2022-06-17 18:13] LABS: ANA Screen, IFA Positive (.)
== END ==
PROVIDERS: PCP Nurse Practitioner; Referring Provider Nurse Practitioner; Visit Provider Nurse Practitioner
DX: M10.9 Gout, unspecified (principal); M25.542 Pain in joints of left hand; M79.642 Pain in left hand
CPT/HCPCS: 36415; 84550; 85651; 86038; 86140; 86430

== ENCOUNTER → 2022-06-13 13:41 | Outpatient (CLI) | payer MEDICARE, OTHER, SELFPAY ==
--- NOTE | 2022-06-13 | DI.ECHO.S_ITS ---
[place] [facility]---------+ [facility] +---------+ : : [address] : : : : [id number] : : : : Phone: [phone]+ Echocardiogram Report + + :Name: JOSE CARLOS MERCADO Study Date: 06/13/2022 Height: 63.5 in: :[facility] ReadingLocation: Weight: 191 lb : : Gender: Female BSA: 1.9 m2 : :: 1940 Age: 81 yrs BP: 133/63 mmHg: :Reason For Study: SHORTNESS OF BREATH : :Ordering Physician: MEDHAT, : :MEKA Granados Performed By: Aminah Velasco : :Referring: MEKA SCOTT : + + Interpretation Summary The ejection fraction is estimated to be 60-65%. Diastolic parameters suggest probable normal left ventricular diastolic function and normal filling pressures. The right ventricle is normal in size and function. There is mild tricuspid regurgitation. The right ventricular systolic pressure is estimated to be at least 29 mmHg based on an estimated right atrial pressure of 3 mm Hg. Compared to the prior study dated 01/15/2021, no significant change. Procedure: A two-dimensional transthoracic echocardiogram with color flow and Doppler was performed. The study quality was technically adequate. Comparison is made with the echocardiogram of 01/15/2021. The patient was in sinus rhythm with heart rates between 61-74 bpm during the exam. Left Ventricle: The left ventricle is normal in size and wall thickness. The ejection fraction is estimated to be 60-65%. Diastolic parameters suggest probable normal left ventricular diastolic function and normal filling pressures. Right Ventricle: The right ventricle is normal in size and function. Atria: The left atrial size is normal. Right atrial size is normal. There is no Doppler evidence for an interatrial shunt. Mitral Valve: The mitral valve is normal in structure and function. There is trace mitral regurgitation. Aortic Valve: The aortic valve is trileaflet. The aortic valve opens well. There is no aortic valve stenosis. No aortic regurgitation is present. Tricuspid Valve: The tricuspid valve is normal in structure and function. There is mild tricuspid regurgitation. The right ventricular systolic pressure is estimated to be at least 29 mmHg based on an estimated right atrial pressure of 3 mm Hg. Pulmonic Valve: The pulmonic valve leaflets are thin and pliable; valve motion is normal. There is mild to moderate pulmonic regurgitation. Great Vessels: The aortic root is normal size. The dimensions of the ascending aorta are normal. The IVC is of normal diameter and collapses greater than 50% with a sniff. This suggests a low right atrial pressure of 3 mm Hg. Pericardium/ Pleura There is no pericardial effusion. There is no pleural effusion. MMode/2D Measurements & Calculations LVIDd: 4.8 cm LVOT diam: 2.0 cm LVIDs: 3.4 cm Ao root diam: 3.0 cm FS: 29.8 % asc Aorta Diam: 3.3 cm IVSd: 0.71 cm Ao Arch Diam (Prox Trans): 3.0 cm LVPWd: 0.75 cm LV higginbotham. diameter/BSA (cm/m^2): 2.5 LV sys. diameter/BSA (cm/m^2): 1.8 LA A2 area: 19.6 cm2 RA long axis: 5.5 cm LA A4 area: 18.3 cm2 RA area: 20.0 cm2 LA length (vol): 5.4 cm RA vol: 62.0 ml LA vol: 56.3 ml RA : 32.5 ml/m2 LA vol index: 29.5 ml/m2 IVC diam: 1.0 cm RVD1 (basal): 4.2 cm RVD2 (mid): 3.4 cm TAPSE: 2.1 cm Doppler Measurements & Calculations Ao V2 max: 124.0 cm/sec LVOT Max Colt: 84.6 cm/sec Ao V2 mean: 88.5 cm/sec LV V1 max P.9 mmHg Ao max P.2 mmHg LV V1 VTI: 22.0 cm Ao mean P.4 mmHg HAYDER(I,D): 2.4 cm2 Ao V2 VTI: 27.9 cm HAYDER(V,D): 2.1 cm2 sev ratio: 0.79 HAYDER indexed to BSA (cm^2/m^2): 1.3 MV E max colt: 70.6 cm/sec TR max colt: 255.9 cm/sec MV A max colt: 89.0 cm/sec TR max P.2 mmHg MV E/A: 0.79 PA V2 max: 98.9 cm/sec Med Peak E' Colt: 8.8 cm/sec PA V2 mean: 78.8 cm/sec E/E' med: 8.0 PA mean P.6 mmHg Lat Peak E' Colt: 10.0 cm/sec PA pr(Accel): 29.3 mmHg E/E' lat: 7.1 E/e' average: 7.6 MV dec time: 0.22 sec [facility] 66.8 ml Reading Physician:05:31 PM
== END ==
PROVIDERS: PCP Nurse Practitioner; Referring Provider Internal Medicine Cardiovascular Disease; Visit Provider Internal Medicine Cardiovascular Disease
DX: R06.02 Shortness of breath (principal); I07.1 Rheumatic tricuspid insufficiency
CPT/HCPCS: 93306

== ENCOUNTER → 2023-01-23 11:21 | Outpatient (CLI) | payer MEDICARE, OTHER, SELFPAY ==
--- NOTE | 2023-01-23 11:22 | DI.RAD.S_ITS ---
PROCEDURE: XR LUMBAR SPINE MIN 4V INDICATIONS: acute on chronic lumbar pain TECHNIQUE: 5 views of the lumbar spine were acquired, including bilateral oblique views. COMPARISON: [facility], CR, XR LUMBAR SPINE WITH OLBIQUES PLUS FLEXION EXTENSION, 04/02/2019, 10:17. FINDINGS: Bones: 5 nonrib-bearing vertebrae are present no acute fracture or traumatic subluxation. Mild grade 1 retrolisthesis of T12 on L1, L1 on L2 and L2 on L3. Grade 1 anterolisthesis of L3 on L4 and L4 on L5. Moderate multilevel degenerative changes of the spine including disc height loss, anterior osteophytosis and facet arthropathy, notably at T12-L1. Slight levoconvex curvature of the thoracic spine with apex at L3. No suspicious bony lesions. Soft tissues: Overlying bowel gas pattern is normal. No suspicious soft tissue calcifications. Calcification of the abdominal aorta. Cholecystectomy clips. Oblique images: No pars defects. IMPRESSION: 1. No acute fracture or traumatic subluxation. If pain persists, consider cross-sectional imaging for further evaluation. 2. Moderate multilevel degenerative changes of the spine, slightly progressed compared to prior dated April 02, 2019. Dictated by: Danielle Valdez M.D. on 01/23/2023 at 18:39 Approved by: Danielle Valdez M.D. on 01/23/2023 at 18:45
--- NOTE | 2023-01-23 11:22 | DI.RAD.S_ITS ---
PROCEDURE: XR HIP W PEL IF DONE AMPARO MIN 4V INDICATIONS: chronic low back/hip pain TECHNIQUE: AP pelvis with lateral view(s) of the bilateral hip(s). COMPARISON: None. FINDINGS: Bones: No fractures or dislocations. Pelvic ring appears intact. Mild to moderate bilateral hip joint space narrowing and juxta-articular osteophytosis. Moderate degenerative changes of the lower lumbar spine. No suspicious bony lesions. Soft tissues: The visualized bowel gas pattern is normal. No suspicious soft tissue calcifications. Calcified pelvic phleboliths. IMPRESSION: 1. No acute fracture or dislocation. If there is high clinical suspicion for a radiographically occult fracture, consider CT or MRI for further evaluation. 2. Mild to moderate degenerative changes of the bilateral hips and lower lumbar spine. Dictated by: Danielle Valdez M.D. on 01/23/2023 at 18:37 Approved by: Danielle Valdez M.D. on 01/23/2023 at 18:39
== END ==
PROVIDERS: PCP Nurse Practitioner; Referring Provider Physician Assistant; Visit Provider Physician Assistant
DX: M47.816 Spondylosis without myelopathy or radiculopathy, lumbar region (principal); M25.551 Pain in right hip; M48.061 Spinal stenosis, lumbar region without neurogenic claudication; M25.552 Pain in left hip
CPT/HCPCS: 72110; 73522

== ENCOUNTER → 2023-01-24 11:17 | Outpatient (CLI) | payer MEDICARE, OTHER, SELFPAY ==
[2023-01-27 15:47] LABS: Fecal Immunochemical Test Negative (Negative)
[2023-01-27 18:27] LABS: Interpretation Negative (Negative)
== END ==
PROVIDERS: PCP Nurse Practitioner; Referring Provider Physician Assistant; Visit Provider Physician Assistant
DX: K52.9 Noninfective gastroenteritis and colitis, unspecified (principal)
CPT/HCPCS: 82274; 83013

== ENCOUNTER → 2023-03-29 11:15 | Outpatient (CLI) | payer MEDICARE, OTHER, SELFPAY ==
--- NOTE | 2023-03-29 11:17 | DI.MG.S_ITS ---
BILATERAL DIGITAL SCREENING MAMMOGRAM 3D/2D WITH CAD: 03/29/2023 CLINICAL: Routine screening. Comparison is made to exams dated: 03/22/2022 mammogram, 02/07/2021 mammogram, and 01/29/2020 mammogram - [facility]. There are scattered areas of fibroglandular density in both breasts (category b / 25%-50% glandular tissue). Current study was also evaluated with a Computer Aided Detection (CAD) system. No significant masses, calcifications, or other findings are seen in either breast. There has been no significant interval change. IMPRESSION: NEGATIVE There is no mammographic evidence of malignancy. A 1 year screening mammogram is recommended. Based on the Tyrer Cuzick model (a risk assessment model) the patient's lifetime risk is 1.5% and her 10 year risk is 0.0%. According to the ACR, ACS, and NCCN guidelines, an annual breast MRI exam along with mammogram is recommended if the patient's lifetime risk is 20% or greater. This exam was interpreted at Station ID: [id number]. NOTE: For mammograms, a report in lay terms will be sent to the patient. Approximately 15% of breast malignancies will not be visualized mammographically. In the management of a palpable breast mass, a negative mammogram must not discourage biopsy of a clinically suspicious lesion. Electronically Signed By: Angeline momin/wyatt:03/31/2023 13:15:54 letter sent: Normal Exam ACR BI-RADS Category 1: Negative [id number]
== END ==
LOC: MAMMO 11:17
PROVIDERS: PCP Nurse Practitioner; Referring Provider Nurse Practitioner; Visit Provider Nurse Practitioner
DX: Z12.31 Encounter for screening mammogram for malignant neoplasm of breast (principal); R92.323 Mammographic fibroglandular density, bilateral breasts
CPT/HCPCS: 77063; 77067

== ENCOUNTER → 2023-06-12 08:42 | Outpatient (CLI) | payer MEDICARE, OTHER, SELFPAY ==
[2023-06-12 09:26] LABS: Add Manual Diff / Slide Review NO; Basophils Absolute Auto 100 /uL (0-100); Eosinophils Absolute Auto 100 /uL (0-450); Eosinophils Percent Auto 2.5 % (2-4); Hemoglobin 13.7 g/dL (12.0-16.0); Lymphocytes Absolute Auto 2400 /uL (1100-4500); Lymphocytes Percent Auto 40.7 % (25-40); Mean Corpuscular HGB Conc 33.4 % (30-36); Mean Corpuscular Hemoglobin 30.4 PG (26-34); Mean Corpuscular Volume 91.1 fL (80-100); Monocytes Absolute Auto 600 /uL (0-900); Monocytes Percent Auto 9.4 % (3-14); Neutrophils Absolute Auto 2700 /uL (1500-7000); Neutrophils Percent Auto 46.4 % (50-75); Platelet Count 207 X10^3/uL (150-400); Red Cell Distribution Width 13.1 % (11.6-14.8); White Blood Cell Count 5.9 X10^3/uL (4.5-11.0)
[2023-06-12 09:42] LABS: Alanine Aminotransferase 32 IU/L (<35); Albumin 3.6 g/dL (3.5-5.0); Albumin Globulin Ratio 1.3 (1.0-2.8); Alkaline Phosphatase 60 U/L (38-126); Aspartate Aminotransferase 32 IU/L (14-36); BUN Creatinine Ratio 27.6 (6-22); Bilirubin Total 0.6 mg/dL (0.2-1.3); Blood Urea Nitrogen 16 mg/dL (7-17); Calcium 9.6 mg/dL (8.4-10.2); Carbon Dioxide 30 mmol/L (22-32); Chloride 108 mmol/L (98-107); Cholesterol 125 mg/dL (140-199); Estimated Glomerular Filt Rate > 60 mL/min (>60); Globulin 2.8 g/dL (1.7-4.1); Glucose 125 mg/dL (80-110); HDL Cholesterol 42 mg/dL (40-60); HEMOLYSIS 17 (0-50); Hemoglobin A1C% w Est Avg Glu 6.4 % (4.0-6.0); LDL Cholesterol Calculated 47 mg/dL (<100); Potassium 4.3 mmol/L (3.4-5.1); Sodium 141 mmol/L (137-145); Total Protein 6.4 g/dL (6.3-8.2); Triglycerides 179 mg/dL (35-150)
[2023-06-12 10:15] LABS: Creatinine Urine Random 12.8 mg/dL
[2023-06-12 10:27] LABS: Microalbumin Urine Random < 0.6 mg/dL (0-1.6)
[2023-06-12 10:31] LABS: Free T3, Triiodothyronine Free 3.71 pg/mL (2.77-5.27); Free T4, Direct Thyroxine 1.69 ng/dL (0.78-2.19)
[2023-06-12 10:45] LABS: Thyroid Stimulating Hormone 1.56 uIU/mL (0.47-4.68)
== END ==
PROVIDERS: PCP Nurse Practitioner; Referring Provider Nurse Practitioner; Visit Provider Nurse Practitioner
DX: E03.9 Hypothyroidism, unspecified (principal); E11.9 Type 2 diabetes mellitus without complications; I10 Essential (primary) hypertension; E78.5 Hyperlipidemia, unspecified; Z79.899 Other long term (current) drug therapy
CPT/HCPCS: 36415; 80053; 80061; 82043; 82570; 83036; 84439; 84443; 84481; 85025

== ENCOUNTER → 2023-06-16 11:54 | Outpatient (CLI) | payer MEDICARE, OTHER, SELFPAY ==
--- NOTE | 2023-06-16 11:55 | DI.RAD.S_ITS ---
PROCEDURE: XR CHEST 2V INDICATIONS: Cough TECHNIQUE: 2 views of the chest were acquired. COMPARISON: [facility], , CHEST 2 VIEW, 08/02/2015, 15:07. FINDINGS: Surgical changes and devices: None. Lungs and pleura: Lungs are clear. No pleural effusions or pneumothorax. Mediastinum: Mediastinal contours are normal. Heart size is normal. Bones and chest wall: No suspicious bony abnormalities. Soft tissues appear unremarkable. IMPRESSION: No acute cardiopulmonary abnormality is seen. Dictated by: Luis Eduardo Kowalski M.D. on 06/16/2023 at 13:16 Approved by: Luis Eduardo Kowalski M.D. on 06/16/2023 at 13:17
== END ==
PROVIDERS: PCP Nurse Practitioner; Referring Provider Nurse Practitioner; Visit Provider Nurse Practitioner
DX: R05.9 Cough, unspecified (principal)
CPT/HCPCS: 71046

== ENCOUNTER → 2023-09-11 08:35 | Outpatient (CLI) | payer MEDICARE, OTHER, SELFPAY ==
[2023-09-11 09:20] LABS: Alanine Aminotransferase 27 IU/L (<35); Albumin 3.7 g/dL (3.5-5.0); Albumin Globulin Ratio 1.4 (1.0-2.8); Alkaline Phosphatase 59 U/L (38-126); Aspartate Aminotransferase 26 IU/L (14-36); BUN Creatinine Ratio 17.1 (6-22); Bilirubin Total 0.7 mg/dL (0.2-1.3); Blood Urea Nitrogen 13 mg/dL (7-17); Calcium 9.4 mg/dL (8.4-10.2); Carbon Dioxide 28 mmol/L (22-32); Chloride 110 mmol/L (98-107); Cholesterol 118 mg/dL (140-199); Estimated Glomerular Filt Rate > 60 mL/min (>60); Globulin 2.6 g/dL (1.7-4.1); Glucose 117 mg/dL (80-110); HDL Cholesterol 47 mg/dL (40-60); HEMOLYSIS < 15 (0-50); LDL Cholesterol Calculated 45 mg/dL (<100); Potassium 4.1 mmol/L (3.4-5.1); Sodium 141 mmol/L (137-145); Total Protein 6.3 g/dL (6.3-8.2); Triglycerides 130 mg/dL (35-150)
== END ==
PROVIDERS: PCP Nurse Practitioner; Referring Provider Nurse Practitioner; Visit Provider Nurse Practitioner
DX: E11.9 Type 2 diabetes mellitus without complications (principal); E78.5 Hyperlipidemia, unspecified
CPT/HCPCS: 36415; 80053; 80061; 83036

== ENCOUNTER → 2023-09-16 12:40 | Outpatient (CLI) | payer MEDICARE, OTHER, SELFPAY ==
--- NOTE | 2023-09-16 12:43 | DI.RAD.S_ITS ---
PROCEDURE: XR LUMBAR SPINE 2-3V INDICATIONS: lumbar back pain TECHNIQUE: 3 views of the lumbar spine were acquired. COMPARISON: [facility], CR, XR LUMBAR SPINE MIN 4V, 01/23/2023, 11:29. FINDINGS: Bones: 5 [id number] vertebrae are present. Leftward curvature of the spine, centered at L2. No vertebral body compression fractures. No suspicious bony lesions. Grade 1 anterolisthesis of L3 on L4 and L4 on L5, stable from prior. Moderate disc height loss at L2-3, L4-5. Mild disc height loss at remaining levels. Diffuse facet arthrosis. Soft tissues: Overlying bowel gas pattern is normal. No suspicious soft tissue calcifications. IMPRESSION: Mild to moderate, multilevel degenerative disc disease and diffuse facet arthrosis. This has minimally progressed since 01/23/2023. Dictated by: Juan A Wall M.D. on 09/16/2023 at 15:18 Approved by: Juan A Wall M.D. on 09/16/2023 at 15:19
--- NOTE | 2023-09-16 12:43 | DI.RAD.S_ITS ---
PROCEDURE: XR HIP W PEL IF DONE AMPARO MIN 4V INDICATIONS: cervical spine pain and bilateral arm n/t TECHNIQUE: AP pelvis with lateral view(s) of the bilateral hip(s). COMPARISON: [facility], , XR HIP W PEL IF DONE AMPARO 3TO4V, 01/23/2023, 11:29. FINDINGS: Bones: No fractures or dislocations. Pelvic ring appears intact. No suspicious bony lesions. Nonuniform joint space narrowing and osteophytic lipping of the acetabuli. Soft tissues: The visualized bowel gas pattern is normal. No suspicious soft tissue calcifications. IMPRESSION: Mild bilateral hip osteoarthritis. Dictated by: Juan A Wall M.D. on 09/16/2023 at 15:20 Approved by: Juan A Wall M.D. on 09/16/2023 at 15:21
--- NOTE | 2023-09-16 12:43 | DI.RAD.S_ITS ---
PROCEDURE: XR CERVICAL SPINE 2V OR 3V INDICATIONS: cervical spine pain and bilateral arm n/t TECHNIQUE: 3 view(s) of the cervical spine were acquired. COMPARISON: None. FINDINGS: Bones: No fractures or dislocations to the T1 level. The lateral masses of C1 appear intact on the odontoid view. No suspicious bony lesions. Osseous fusion C6-7. Moderate disc height loss at C5-6 and C7-T1. Mild disc height loss at remaining levels. Diffuse facet arthrosis, most prominent at C3 through C6. Soft tissues: No prevertebral soft tissue swelling. IMPRESSION: Mild to moderate, multilevel degenerative disc disease and diffuse facet arthrosis. Dictated by: Juan A Wall M.D. on 09/16/2023 at 15:20 Approved by: Juan A Wall M.D. on 09/16/2023 at 15:20
== END ==
LOC: LAB 12:41 → RAD 12:42
PROVIDERS: PCP Nurse Practitioner; Referring Provider Nurse Practitioner; Visit Provider Nurse Practitioner
DX: M47.812 Spondylosis without myelopathy or radiculopathy, cervical region (principal); M51.16 Intervertebral disc disorders with radiculopathy, lumbar region; M47.26 Other spondylosis with radiculopathy, lumbar region; M16.0 Bilateral primary osteoarthritis of hip; M50.322 Other cervical disc degeneration at C5-C6 level; M48.061 Spinal stenosis, lumbar region without neurogenic claudication; M25.551 Pain in right hip; M25.552 Pain in left hip
CPT/HCPCS: 72040; 72100; 73522

== ENCOUNTER → 2023-10-09 16:33 | Outpatient (CLI) | payer MEDICARE, OTHER, SELFPAY ==
--- NOTE | 2023-10-09 16:39 | DI.RAD.S_ITS ---
PROCEDURE: XR HAND RT 2V INDICATIONS: right wrist/hand pain/swelling anterior + lat dorsal TECHNIQUE: 2 views of the hand(s) acquired. COMPARISON: None. FINDINGS: Bones: No definite acute fractures or dislocations. Possible chronic fracture deformity of the pisiform. Severe 1st CMC joint degeneration. Mild diffuse interphalangeal joint degeneration, moderate at the 2nd DIP. Moderate triscaphe joint degeneration. Carpal bones are normally aligned. No suspicious bony lesions. Soft tissues: No suspicious soft tissue calcifications. IMPRESSION: No definite acute osseous abnormalities. Possible chronic fracture deformity of the piece of form, recommend correlation with point tenderness. Degenerative changes, severe at the 1st CMC joint. Dictated by: Francisco Jaramillo M.D. on 10/09/2023 at 17:07 Approved by: Francisco Jaramillo M.D. on 10/09/2023 at 17:08
--- NOTE | 2023-10-09 16:39 | DI.RAD.S_ITS ---
PROCEDURE: XR WRIST RT 2V INDICATIONS: right wrsit/hand pain/swelling anterior + lat dorsal TECHNIQUE: 2 views of the wrist were acquired. COMPARISON: [facility], , WRIST MINIMUM 3 VIEWS LEFT, 07/04/2016, 8:57. FINDINGS: Bones: No definite fractures or dislocations. Possible chronic fracture deformity of the pisiform. Severe 1st CMC joint degeneration. No suspicious bony lesions. Soft tissues: No suspicious soft tissue calcifications. IMPRESSION: Possible chronic fracture deformity of the piece of form, recommend correlation point tenderness. No other findings concerning for acute fracture. Severe 1st CMC joint degeneration. Dictated by: Francisco Jaramillo M.D. on 10/09/2023 at 17:08 Approved by: Francisco Jaramillo M.D. on 10/09/2023 at 17:09
== END ==
PROVIDERS: PCP Nurse Practitioner; Referring Provider Student in an Organized Health Care Education/Training Program; Visit Provider Student in an Organized Health Care Education/Training Program
DX: L03.90 Cellulitis, unspecified (principal); M77.9 Enthesopathy, unspecified; M19.041 Primary osteoarthritis, right hand; M19.031 Primary osteoarthritis, right wrist
CPT/HCPCS: 73100; 73120

== ENCOUNTER → 2023-12-15 15:54 | Outpatient (CLI) | payer MEDICARE, OTHER, SELFPAY ==
[2023-12-15 17:44] LABS: Hemoglobin A1C% w Est Avg Glu 6.1 % (4.0-6.0)
== END ==
PROVIDERS: PCP Family Medicine; Referring Provider Family Medicine; Visit Provider Family Medicine
DX: E11.69 Type 2 diabetes mellitus with other specified complication (principal); E78.5 Hyperlipidemia, unspecified
CPT/HCPCS: 83036

== ENCOUNTER 2024-02-26 13:14 | Outpatient (CLI) | payer MEDICARE, OTHER, SELFPAY ==
[2024-02-26] VITALS (9 sets, daily range): BP systolic 132–185; BP diastolic 67–79; PULSE 67–84; RESP 10–20; TEMP 36.3; O2SAT 67–100
--- NOTE | 2024-02-26 13:15 | DI.RAD.S_ITS ---
PROCEDURE: PAIN L INTERLAMINAR/CAUDAL INJ INDICATIONS: SPINAL STENOSIS COMPARISON: None. FINDINGS/IMPRESSION: Fluoroscopic spot filming was performed to verify placement of spinal needle at the L4-5 level, as labeled on the films. Appropriate location of the needle tip was confirmed by injection of iodinated contrast. Approved by: Attila Navaror M.D. on 02/26/2024 at 20:39
[2024-02-26] MEDS: MIDAZOLAM 2 MG/2 ML VIAL 1 MG IV (14:28)
[2024-02-26] MEDS: DEXAMETHASONE 10 MG/ML VIAL INJ (14:32)
[2024-02-26] MEDS: iopamidoL 15 ML VIAL 3 ML INJ (14:32)
[2024-02-26] MEDS: BETAMETHASONE 30 MG/5 ML MDV 12 MG INJ (14:32)
[2024-02-26] MEDS: BUPIVACAINE 0.25% (PF) VIAL 2 ML INJ (14:33)
--- NOTE | 2024-02-26 14:43 | P.PCN_ITS ---
Date/Time/Diagnoses Date of procedure: 02/26/24 Time of procedure: 14:43 Pre-procedure diagnosis: 1. HNP WITH RADICULAR FEATURES, 2. MULTILEVEL CENTRAL STENOSIS, Post-procedure diagnosis: same Procedure Notes Procedure: 1. FLUOROSCOPICALLY GUIDED CONTRAST CONTROLLED INTERLAMINAR EPIDURAL STEROID INJECTION -L4/5 Indications: Natalie is referred by Dr. Austin for treatment of Bilateral Foraminal Stenosis R>L LE symptoms. Physician: Jay Lerma Total Fluoroscopy time (seconds): 7 Total sedation minutes: 12 Complications: none Procedure in detail & Post-procedure care: FINDINGS Multilevel Central Spinal Stenosis with Nerve Root Compression DESCRIPTION OF PROCEDURE Fluoroscopically guided, contrast-controlled L4/5 translaminar epidural steroid injection. Following review of allergy and review of potential side effects and complications, including, but not necessarily limited to, infection, allergic reaction, local tissue breakdown, temporary as well as permanent nerve injury, paralysis, stroke and possible , the patient indicated that the patient understood and agreed to proceed. An informed consent document was signed by the patient, witnessed by a nurse, and placed in the patient's chart. Additionally, other treatment options including modalities, medications, and physical therapy were reviewed with the patient. After review of previous anaesthesic history and IV conscious sedation the patient was deemed safe to proceed with today?s procedure with IV conscious sedation as ASA class II designation. Safety time-out was performed to confirm patient ID, procedure to be performed and site of procedure. IV sedation was accomplished with a combination of 2mg of Versed was administered by the RN after DO order, titrated to patient comfort during the course of the procedure while the patient remained responsive to all verbal commands In the prone position, following sterile prep and drape of the lumbar region, the L4/5 translaminar space was identified fluoroscopically. The skin was anesthetized via a 25-gauge, 1.5inch needle with 1% lidocaine solution. At this point, a 22-gauge short bevel spinal needle was atraumatically introduced and ad vanced under fluoroscopic guidance into the region of the L4/5 translaminar space. Depth was confirmed on lateral view. Radiological data, including multiple fluoroscopic views of the lumbar spine, reveal a spinal needle at the L4/5 translaminar space. Lateral views then show placement of the needle in the epidural space. Subsequent views show contrast material flowing superiorly and inferiorly in the epidural space. No vascular or intrathecal uptake is observed. At this point, using loss of resistance technique with saline and air, the epidural space was entered. This was confirmed following negative aspiration with injection of approximately 1.5cc of Isovue 200, showing excellent epidural flow without vascular or intrathecal uptake. At this point, 1cc of 1% lidocaine solution combined with 2cc or 10mg of dexamethasone and 6mg betamethasone was injected without incident. The patient tolerated the procedure well without signs or symptoms of complications prior to transfer to the recovery area continued monitoring without incident. The patient was then transferred to the recovery area where they were observed for an appropriate period of time after the injection. The patient reported a VAS score of 7 prior to the procedure and a post- procedure VAS of 1. POST OP INSTRUCTIONS The patient was provided a Pain Log to continue to record their response to the target-specific procedure prior to follow-up visit with their referring physician. Additionally, specific post-injection care instructions and a contact number to our office were provided if concerns arise regarding possible complications associated with the procedure are suspected.
== END 2024-02-26 15:01 | disposition home or self-care (01) ==
LOC: RAD 13:15
PROVIDERS: PCP Family Medicine; Referring Provider Physical Medicine & Rehabilitation; Visit Provider Physical Medicine & Rehabilitation
DX: M51.16 Intervertebral disc disorders with radiculopathy, lumbar region (principal); M48.061 Spinal stenosis, lumbar region without neurogenic claudication
CPT/HCPCS: 62323; 99152; J0702; J1100; J2250; J3490

== ENCOUNTER → 2024-04-10 10:23 | Outpatient (CLI) | payer MEDICARE, OTHER, SELFPAY ==
--- NOTE | 2024-04-10 | DI.MG.S_ITS ---
BILATERAL DIGITAL SCREENING MAMMOGRAM 3D/2D WITH CAD: 04/10/2024 CLINICAL: Routine screening. Comparison is made to exams dated: 03/29/2023 mammogram, 03/22/2022 mammogram, and 02/07/2021 mammogram - [facility]. There are scattered areas of fibroglandular density (category b / 25%-50% glandular tissue). Current study was also evaluated with a Computer Aided Detection (CAD) system. No significant masses, calcifications, or other findings are seen in either breast. There has been no significant interval change. IMPRESSION: NEGATIVE There is no mammographic evidence of malignancy. A 1 year screening mammogram is recommended. Based on the Tyrer Cuzick model (a risk assessment model) the patient's lifetime risk is 1.2% and her 10 year risk is 0.0%. According to the ACR, ACS, and NCCN guidelines, an annual breast MRI exam along with mammogram is recommended if the patient's lifetime risk is 20% or greater. This exam was interpreted at Station ID: [id number]. NOTE: For mammograms, a report in lay terms will be sent to the patient. Approximately 15% of breast malignancies will not be visualized mammographically. In the management of a palpable breast mass, a negative mammogram must not discourage biopsy of a clinically suspicious lesion. Electronically Signed By: Kin solis/wyatt:04/12/2024 11:36:26 letter sent: Normal Exam ACR BI-RADS Category 1: Negative
== END ==
PROVIDERS: PCP Family Medicine; Referring Provider Family Medicine; Visit Provider Family Medicine
DX: Z12.31 Encounter for screening mammogram for malignant neoplasm of breast (principal)
CPT/HCPCS: 77063; 77067

== ENCOUNTER → 2024-05-13 08:24 | Outpatient (CLI) | payer MEDICARE, OTHER, SELFPAY ==
[2024-05-13 08:58] LABS: Hematocrit 44.3 % (36-46); Hemoglobin 14.9 g/dL (12.0-16.0); Mean Corpuscular HGB Conc 33.6 % (30-36); Mean Corpuscular Hemoglobin 30.6 PG (26-34); Mean Corpuscular Volume 91.1 fL (80-100); Platelet Count 226 X10^3/uL (150-400); Red Blood Cell Count 4.86 X10^6/uL (4.0-5.2); White Blood Cell Count 6.8 X10^3/uL (4.5-11.0)
[2024-05-13 09:17] LABS: Alanine Aminotransferase 34 IU/L (<35); Albumin 3.9 g/dL (3.5-5.0); Albumin Globulin Ratio 1.6 (1.0-2.8); Alkaline Phosphatase 65 U/L (38-126); Aspartate Aminotransferase 31 IU/L (14-36); BUN Creatinine Ratio 19.7 (6-22); Bilirubin Total 0.7 mg/dL (0.2-1.3); Blood Urea Nitrogen 15 mg/dL (7-17); Calcium 9.8 mg/dL (8.4-10.2); Carbon Dioxide 28 mmol/L (22-32); Chloride 106 mmol/L (98-107); Cholesterol 123 mg/dL (140-199); Estimated Glomerular Filt Rate > 60 mL/min (>60); Globulin 2.5 g/dL (1.7-4.1); Glucose 117 mg/dL (80-110); HDL Cholesterol 45 mg/dL (40-60); HEMOLYSIS < 15 (0-50); LDL Cholesterol Calculated 49 mg/dL (<100); Potassium 4.6 mmol/L (3.4-5.1); Sodium 140 mmol/L (137-145); Total Protein 6.4 g/dL (6.3-8.2); Triglycerides 147 mg/dL (35-150)
[2024-05-13 13:06] LABS: Neutrophils Absolute Manual 4148 /uL (3000-5900); Total Cells Counted 100
[2024-05-13 13:07] LABS: RBC Morphology Normal Morphology
== END ==
PROVIDERS: PCP Family Medicine; Referring Provider Nurse Practitioner Acute Care; Visit Provider Nurse Practitioner Acute Care
DX: M79.89 Other specified soft tissue disorders (principal); E03.9 Hypothyroidism, unspecified; E78.5 Hyperlipidemia, unspecified; R25.2 Cramp and spasm
CPT/HCPCS: 36415; 80053; 80061; 83735; 84436; 84443; 85025

== ENCOUNTER 2024-06-03 09:55 | Outpatient (CLI) | payer MEDICARE, OTHER, SELFPAY ==
[2024-06-03] VITALS (9 sets, daily range): BP systolic 117–161; BP diastolic 58–94; PULSE 63–73; RESP 14–17; TEMP 36.1; O2SAT 93–100
[2024-06-03] MEDS: MIDAZOLAM 2 MG/2 ML VIAL IV (11:26)
[2024-06-03] MEDS: iopamidoL 15 ML VIAL 3 ML INJ (11:31)
[2024-06-03] MEDS: DEXAMETHASONE 10 MG/ML VIAL 20 MG INJ (11:31)
[2024-06-03] MEDS: BETAMETHASONE 30 MG/5 ML MDV 12 MG INJ (11:31)
[2024-06-03] MEDS: BETAMETHASONE 30 MG/5 ML MDV 6 MG INJ (11:32)
[2024-06-03] MEDS: BUPIVACAINE 0.25% (PF) VIAL 2 ML INJ (11:32)
--- NOTE | 2024-06-03 11:49 | P.PCN_ITS ---
Date/Time/Diagnoses Date of procedure: 06/03/24 Time of procedure: 11:49 Pre-procedure diagnosis: 1. FORAMINAL STENOSIS WITH LE SYMPTOMS Post-procedure diagnosis: same Procedure Notes Procedure: 1. FLUOROSCOPICALLY GUIDED CONTRAST CONTROLLED TRANSFORAMINAL EPIDURAL STEROID INJECTION - RIGHT L3/4 TFESI Indications: Natalie is referred by Dr. Austin for treatment of Foraminal Stenosis with right LE Symptoms Physician: Jay Lerma Total Fluoroscopy time (seconds): 16 Total sedation minutes: 23 Complications: none Procedure in detail & Post-procedure care: FINDINGS Foraminal Nerve Root Compression secondary to disc disease and facet hypertrophy DESCRIPTION OF PROCEDURE Following review of allergy and review of potential side effects and complications, including, but not necessarily limited to, infection, allergic reaction, local tissue breakdown, stroke, temporary or permanent nerve injury, paralysis, and possible , the patient indicated that the patient understood and agreed to proceed. An informed consent document was signed by the patient, witnessed by a nurse, and placed in the patient's chart. Additionally, other treatment options including medications, modalities, and physical therapy were reviewed with the patient. After review of previous anaesthesic history and IV conscious sedation the patient was deemed safe to proceed with today?s procedure with IV conscious sedation as ASA class II designation. Safety time-out was performed to confirm patient ID, procedure to be performed and site of procedure. IV sedation was accomplished with a combination of 2mg of Versed was administered by the RN after DO order, titrated to patient comfort during the course of the procedure while the patient remained responsive to all verbal commands In the prone position following sterile prep and drape of the lumbar region, the right L3/4 posterior neuroforamen was identified fluoroscopically. The skin was anesthetized via a 25-gauge 1.5-inch needle with 1% lidocaine solution. At this point, a 22-gauge 5-inch spinal needle was atraumatically introduced and advanced under fluoroscopic guidance through the posterior right L3/4 neuroforamen to approximately the anterior aspect of the canal. Depth was confirmed on lateral view. Following negative aspiration, injection of approximately 1.5 cc of Isovue 200 under live fluoroscopy in the AP view confirm ed excellent flow along the nerve root, into the epidural space without vascular or intrathecal uptake observed Radiological data, including multiple fluoroscopic views of the lumbosacral spine, reveal a spinal needle at the right L3/4 posterior neuroforamen. Subsequent views show flow of contrast material flowing superiorly and inferiorly along the nerve root confirming epidural flow. Subsequently, a test dose of 1.5 cc of 1% lidocaine solution was administered and patient was observed for two minutes for signs or symptoms of complications, including abdominal pain, shortness of breath, bilateral upper or lower extremity weakness, nausea and vomiting, prior to steroid injection. At this point, a total of 2cc or 10mg of dexamethasone and 6mg of betamethasone was injected without incident. The patient tolerated the procedure well without signs or symptoms of complications prior to transfer to the recovery area continued monitoring without incident. The patient was then transferred to the recovery area where they were observed for an appropriate time after the injection. The patient reported a VAS score of 7 prior to the procedure and a post-procedure VAS of 0. POST OP INSTRUCTIONS The patient was provided a Pain Log to continue to record their response to the target-specific procedure prior to follow-up visit with their referring physic brigid. Additionally, specific post-injection care instructions and a contact number to our office were provided if concerns arise regarding possible complications associated with the procedure are suspected.
--- NOTE | 2024-06-03 11:50 | P.PCN_ITS ---
Date/Time/Diagnoses Date of procedure: 06/03/24 Time of procedure: 11:50 Pre-procedure diagnosis: 1. FORAMINAL STENOSIS WITH LE SYMPTOMS Post-procedure diagnosis: same Procedure Notes Procedure: 1. FLUOROSCOPICALLY GUIDED CONTRAST CONTROLLED TRANSFORAMINAL EPIDURAL STEROID INJECTION - RIGHT L4/5 TFESI Indications: Natalie is referred by Dr. Austin for treatment of Foraminal Stenosis with Right LE Symptoms Physician: Jay Lerma Total Fluoroscopy time (seconds): 16 Total sedation minutes: 23 Complications: none Procedure in detail & Post-procedure care: FINDINGS Foraminal Nerve Root Compression secondary to disc disease and facet hypertrophy DESCRIPTION OF PROCEDURE Following review of allergy and review of potential side effects and complications, including, but not necessarily limited to, infection, allergic reaction, local tissue breakdown, stroke, temporary or permanent nerve injury, paralysis, and possible , the patient indicated that the patient understood and agreed to proceed. An informed consent document was signed by the patient, witnessed by a nurse, and placed in the patient's chart. Additionally, other treatment options including medications, modalities, and physical therapy were reviewed with the patient. After review of previous anaesthesic history and IV conscious sedation the patient was deemed safe to proceed with today?s procedure with IV conscious sedation as ASA class II designation. Safety time-out was performed to confirm patient ID, procedure to be performed and site of procedure. IV sedation was accomplished with a combination of 2mg of Versed was administered by the RN after DO order, titrated to patient comfort during the course of the procedure while the patient remained responsive to all verbal commands In the prone position following sterile prep and drape of the lumbar region, the right L4/5 posterior neuroforamen was identified fluoroscopically. The skin was anesthetized via a 25-gauge 1.5-inch needle with 1% lidocaine solution. At this point, a 22-gauge 5-inch spinal needle was atraumatically introduced and advanced under fluoroscopic guidance through the posterior right L4/5 neuroforamen to approximately the anterior aspect of the canal. Depth was confirmed on lateral view. Following negative aspiration, injection of approximately 1.5cc of Isovue 200 under live fluoroscopy in the AP view confi rmed excellent flow along the nerve root, into the epidural space without vascular or intrathecal uptake observed Radiological data, including multiple fluoroscopic views of the lumbosacral spine, reveal a spinal needle at the right L4/5 posterior neuroforamen. Subsequent views show flow of contrast material flowing superiorly and inferiorly along the nerve root confirming epidural flow. Subsequently, a test dose of 1.5 cc of 1% lidocaine solution was administered and patient was observed for two minutes for signs or symptoms of complications, including abdominal pain, shortness of breath, bilateral upper or lower extremity weakness, nausea and vomiting, prior to steroid injection. At this point, a total of 2cc or 10mg of dexamethasone and 6mg of betamethasone was injected without incident. The procedure tolerated the procedure well without signs or symptoms of complications prior to transfer to the recovery area continued monitoring without incident. The patient was then transferred to the recovery area where they were observed for an appropriate time after the injection. The patient reported a VAS score of 7 prior to the procedure and a post- procedure VAS of 0. POST OP INSTRUCTIONS The patient was provided a Pain Log to continue to record their response to the target-specific procedure prior to follow-up visit with their referring phy sician. Additionally, specific post-injection care instructions and a contact number to our office were provided if concerns arise regarding possible complications associated with the procedure are suspected.
== END 2024-06-03 12:05 | disposition home or self-care (01) ==
LOC: RAD 09:57
PROVIDERS: PCP Family Medicine; Referring Provider Physical Medicine & Rehabilitation; Visit Provider Physical Medicine & Rehabilitation
DX: M48.061 Spinal stenosis, lumbar region without neurogenic claudication (principal); M51.16 Intervertebral disc disorders with radiculopathy, lumbar region; M47.26 Other spondylosis with radiculopathy, lumbar region
CPT/HCPCS: 64483; 64484; 99152; 99153; J0702; J1100; J2250; J3490

== ENCOUNTER → 2024-09-12 10:36 | Outpatient (CLI) | payer MEDICARE, OTHER, SELFPAY ==
--- NOTE | 2024-09-12 10:38 | DI.MRI.S_ITS ---
PROCEDURE: MR LUMBAR SPINE WO CON INDICATIONS: Progressive spinal stenosis compared with 2019 TECHNIQUE: Noncontrast sagittal T1 spin echo and T2 fast echo, sagittal STIR, and T2 fast spin echo through the lumbar spine. In cases with scoliosis, additional coronal T2 fast spin echo may be performed. COMPARISON: [facility], MR, MR LUMBAR SPINE WO CON, 03/15/2019, 15:02. FINDINGS: Image quality: Excellent. Alignment and Curvature: Levo scoliotic curvature. Grade 1 anterolisthesis of L3 on L4 and L4 on L5. Mild retrolisthesis of T12 on L1. Bone Marrow: Multilevel degenerative endplate changes. Marrow is of normal overall signal. No acute vertebral body compression fractures. Spinal Cord: Conus medullaris terminates at the L1 level. Visualized cord demonstrates normal signal and size. Paraspinous Soft Tissues: No paravertebral masses. Partially visualized simple appearing right renal cysts. T12-L1: Disc desiccation and moderate height loss. Mild disc bulge. No central canal or neural foraminal stenosis. L1-L2: Disc desiccation. Facet arthropathy. Minimal disc bulge. No central canal or neural foraminal stenosis. L2-L3: Disc desiccation and height loss. Minimal disc bulge. Facet arthropathy. Severe central canal stenosis. Moderate bilateral neural foraminal stenosis is stable. L3-L4: Disc desiccation. Mild disc bulge. Facet hypertrophy and thickening of ligamentum flavum. Severe central canal stenosis. Moderate bilateral neural foraminal stenosis. L4-L5: Disc desiccation and mild disc bulge. Facet hypertrophy. Severe central canal stenosis. Mild right and moderate left neural foraminal stenosis. L5-S1: Disc desiccation. Facet arthropathy. No central canal or neural foraminal stenosis. IMPRESSION: 1. Multilevel degenerative changes of the lumbar spine which are similar appearance compared to prior exam. 2. Severe central canal stenosis at L2-L3, L3-L4 and L4-5. 3. Multilevel mild and moderate neural foraminal stenosis. Dictated by: Francisco Jaramillo M.D. on 09/13/2024 at 10:08 Approved by: Francisco Jaramillo M.D. on 09/13/2024 at 10:12
== END ==
LOC: MRI 10:37
PROVIDERS: PCP Family Medicine; Referring Provider Family Medicine; Visit Provider Physical Medicine & Rehabilitation
DX: M47.26 Other spondylosis with radiculopathy, lumbar region (principal); M47.27 Other spondylosis with radiculopathy, lumbosacral region; M48.062 Spinal stenosis, lumbar region with neurogenic claudication
CPT/HCPCS: 72148

== ENCOUNTER → 2024-09-22 13:31 | Outpatient (CLI) | payer MEDICARE, OTHER, SELFPAY ==
--- NOTE | 2024-09-22 15:09 | DI.ECHO.S_ITS ---
[facility] : : [address] : : [place] : : [id number] : : Phone: [phone] Echocardiogram Report + + :Name: JOSE CARLOS MERCADO Study Date: 09/22/2024 Height: 63 in : :Hospital ReadingLocation: Weight: 203 lb : : Gender: Female BSA: 1.9 m2 : :: 1940 Age: 83 yrs BP: 142/82 mmHg: :Reason For Study: SHORTNESS OF BREATH : :Ordering Physician: MEDHAT, : :MKEA Granados Performed By: Aminah Velasco : :Referring: MEKA SCOTT : + + Interpretation Summary The ejection fraction is estimated to be 55-60%. Diastolic parameters suggest probable normal left ventricular diastolic function and normal filling pressures. The right ventricle is normal in size and function. No significant valvular abnormalities. Pulmonary artery pressures cannot be estimated because of the lack of a measurable TR jet velocity but the IVC suggests a CVP of around 3 mmHg. Compared to the prior study 06/13/2022, no change. Procedure: A two-dimensional transthoracic echocardiogram with color flow and Doppler was performed. The study quality was technically adequate. Comparison is made with the echocardiogram of 06/13/2022. The patient was in sinus rhythm with heart rates between 62-68 bpm during the exam. Left Ventricle: The left ventricle is normal in size and wall thickness. The ejection fraction is estimated to be 55-60%. Diastolic parameters suggest probable normal left ventricular diastolic function and normal filling pressures. Right Ventricle: The right ventricle is normal in size and function. Atria: The left atrial size is normal. Right atrial size is normal. There is no Doppler evidence for an interatrial shunt. Mitral Valve: The mitral valve leaflets appear borderline thickened, but open well. There is trace mitral regurgitation. Aortic Valve: The aortic valve is trileaflet. The aortic valve opens well. There is no aortic valve stenosis. No aortic regurgitation is present. Tricuspid Valve: The tricuspid valve leaflets are thin and pliable. There is trace tricuspid regurgitation. Pulmonary artery pressures cannot be estimated because of the lack of a measurable TR jet velocity but the IVC suggests a CVP of around 3 mmHg. Pulmonic Valve: The pulmonic valve leaflets are thin and pliable; valve motion is normal. There is mild pulmonic regurgitation. Great Vessels: The aortic root is normal size. The dimensions of the ascending aorta are normal. The IVC is of normal diameter and collapses greater than 50% with a sniff. This suggests a low right atrial pressure of 3 mm Hg. Pericardium/ Pleura There is no pericardial effusion. There is no pleural effusion. MMode/2D Measurements & Calculations LVIDd: 4.4 cm LVOT diam: 2.1 cm LVIDs: 3.5 cm Ao root diam: 3.1 cm FS: 20.3 % asc Aorta Diam: 3.2 cm IVSd: 0.80 cm Ao Arch Diam (Prox Trans): 3.0 cm LVPWd: 0.74 cm LV higginbotham. diameter/BSA (cm/m^2): 2.3 LV sys. diameter/BSA (cm/m^2): 1.8 LA A2 area: 14.6 cm2 RA long axis: 4.9 cm LA A4 area: 14.7 cm2 RA area: 14.9 cm2 LA length (vol): 4.8 cm RA vol: 38.7 ml LA vol: 38.3 ml RA : 19.9 ml/m2 LA vol index: 19.7 ml/m2 IVC diam: 1.3 cm RVD1 (basal): 3.4 cm RVD2 (mid): 3.5 cm TAPSE: 2.2 cm Doppler Measurements & Calculations Ao V2 max: 108.7 cm/sec LVOT Max Colt: 76.9 cm/sec Ao V2 mean: 81.1 cm/sec LV V1 max P.4 mmHg Ao max P.7 mmHg LV V1 VTI: 18.5 cm Ao mean P.8 mmHg HAYDER(I,D): 2.5 cm2 Ao V2 VTI: 24.8 cm HAYDER(V,D): 2.4 cm2 sev ratio: 0.75 HAYDER indexed to BSA (cm^2/m^2): 1.3 MV E max colt: 55.1 cm/sec TR max colt: 250.0 cm/sec MV A max colt: 83.5 cm/sec TR max P.0 mmHg MV E/A: 0.66 PA V2 max: 89.4 cm/sec Med Peak E' Colt: 7.3 cm/sec PA V2 mean: 62.3 cm/sec E/E' med: 7.6 PA mean P.7 mmHg Lat Peak E' Colt: 10.7 cm/sec PA pr(Accel): 36.6 mmHg E/E' lat: 5.2 E/e' average: 6.4 MV dec time: 0.24 sec SV(LVOT): 62.3 ml Reading Physician:07:48 PM
== END ==
LOC: ECHO 13:33
PROVIDERS: PCP Family Medicine; Referring Provider Internal Medicine Cardiovascular Disease; Visit Provider Internal Medicine Cardiovascular Disease
DX: I37.1 Nonrheumatic pulmonary valve insufficiency (principal); R06.02 Shortness of breath
CPT/HCPCS: 93306

== ENCOUNTER → 2024-10-12 10:38 | Outpatient (CLI) | payer MEDICARE, OTHER, SELFPAY ==
[2024-10-12 11:22] LABS: Blood Urea Nitrogen 14 mg/dL (7-17); Calcium 9.8 mg/dL (8.4-10.2); Carbon Dioxide 25 mmol/L (22-32); Chloride 106 mmol/L (98-107); Estimated Glomerular Filt Rate > 60 mL/min (>60); Glucose 140 mg/dL (70-99); HEMOLYSIS < 15 (0-50); Magnesium 1.8 mg/dL (1.6-2.3); Potassium 4.1 mmol/L (3.4-5.1); Sodium 139 mmol/L (137-145)
[2024-10-12 11:39] LABS: Free T3, Triiodothyronine Free 3.69 pg/mL (2.77-5.27); Free T4, Direct Thyroxine 1.58 ng/dL (0.78-2.19)
[2024-10-12 11:53] LABS: Thyroid Stimulating Hormone 0.701 uIU/mL (0.47-4.68)
== END ==
PROVIDERS: PCP Family Medicine; Referring Provider Internal Medicine Cardiovascular Disease; Visit Provider Internal Medicine Cardiovascular Disease
DX: I10 Essential (primary) hypertension (principal); R79.89 Other specified abnormal findings of blood chemistry; Z86.39 Personal history of other endocrine, nutritional and metabolic disease
CPT/HCPCS: 36415; 80048; 83735; 84439; 84443; 84481